=== PATIENT | female | born 1955 | race Caucasian/White ===

== ENCOUNTER → 2019-03-01 12:48 | Outpatient (BNVA) | payer OTHER, MEDICARE, SELFPAY | PROVIDERS: Family Provider Nurse Practitioner; PCP Nurse Practitioner; Visit Provider Nurse Practitioner | DX: G89.29 Other chronic pain (principal); M54.41 Lumbago with sciatica, right side; M54.42 Lumbago with sciatica, left side; M25.511 Pain in right shoulder; M54.2 Cervicalgia; D68.51 Activated protein C resistance; G47.33 Obstructive sleep apnea (adult) (pediatric); Z79.891 Long term (current) use of opiate analgesic | CPT/HCPCS: 99214 ==

== ENCOUNTER → 2019-04-20 14:01 | Outpatient (BNVA) | payer OTHER, SELFPAY | PROVIDERS: Family Provider Nurse Practitioner; PCP Nurse Practitioner; Visit Provider Anesthesiology | DX: M54.2 Cervicalgia (principal); M54.40 Lumbago with sciatica, unspecified side; Z79.891 Long term (current) use of opiate analgesic | CPT/HCPCS: 99214 ==

== ENCOUNTER → 2019-05-11 09:33 | Outpatient (BNVA) | payer OTHER, SELFPAY | PROVIDERS: Family Provider Nurse Practitioner; PCP Nurse Practitioner; Visit Provider Anesthesiology | DX: G89.29 Other chronic pain (principal); M54.42 Lumbago with sciatica, left side; M54.41 Lumbago with sciatica, right side; Z79.891 Long term (current) use of opiate analgesic | CPT/HCPCS: 62323; J1040; J2001; J3490 ==

== ENCOUNTER → 2019-08-23 08:47 | Outpatient (BNVA) | payer OTHER, SELFPAY | PROVIDERS: Family Provider Nurse Practitioner; PCP Nurse Practitioner; Visit Provider Anesthesiology | DX: G89.29 Other chronic pain (principal); M54.42 Lumbago with sciatica, left side; M54.41 Lumbago with sciatica, right side; M54.2 Cervicalgia; Z79.891 Long term (current) use of opiate analgesic | CPT/HCPCS: 99214 ==

== ENCOUNTER → 2019-09-05 15:10 | Outpatient (BNVA) | payer MEDICARE, OTHER, SELFPAY | PROVIDERS: Family Provider Nurse Practitioner; PCP Nurse Practitioner; Visit Provider Internal Medicine Cardiovascular Disease | DX: I10 Essential (primary) hypertension (principal); R06.02 Shortness of breath; I50.33 Acute on chronic diastolic (congestive) heart failure; I25.10 Atherosclerotic heart disease of native coronary artery without angina pectoris; R07.89 Other chest pain | CPT/HCPCS: 80048; 83880 ==

== ENCOUNTER 2019-09-20 09:18 | Outpatient (CLI) | payer MEDICARE, OTHER, SELFPAY ==
[2019-09-20 10:34] VITALS: BMI 42.8
--- NOTE | 2019-09-20 10:35 | NMCV_ITS ---
NM alexandra perf SPECT r/s* [id number] Joanie Stevesn Age: 63 Gender: F : 1955 Exam Date: 09/20/2019 10:43 Ordering Phys: Vicenta Will MD ([email or web address]) Technologist: ALMA Linn Exam Location: [facility] Indications: Chest pain STRESS TEST Please see separate stress test report in [facility] for full findings IMAGE PROTOCOL Rest/Stress 1 Lexiscan Day Radiopharmaceutical Dose (mCi) Administration Site Administered by Rest: Tc-99m 10.5 IV ALMA Linn Sestamibi Stress:Tc-99m 32.9 IV ALMA Linn Sestamijessica Rest: 20-Sep-2019 60 Discovery 630 Stress: 20-Sep-2019 30 Discovery 630 0.4mg Lexiscan. Supine position only as patient was unable to lay prone. SPECT RESULTS Technical Quality: Excellent Raw Data Analysis: Normal Image Corrections: No attenuation or motion correction applied Summed Stress Score: 0 Summed Rest Score: 1 Summed Difference Score: 0 PERFUSION FINDINGS Patchy areas of slightly decreased tracer uptake in anterior wall regions, with no significant reversibility. FUNCTIONAL RESULTS (calculated via Gated SPECT) Stress Image LV EF (%): 80 Stress EDV (mL):127 TID: 1.01 Stress ESV (mL):25 FUNCTIONAL FINDINGS: Segmental wall motion analysis revealing no gross wall motion normalities. IMPRESSIONS 1. Unremarkable myocardial perfusion imaging. 2. Normal LV ejection fraction of 80%. 3. LV wall motion analysis revealing no gross wall motion normalities. 4. Normal LV volume. No significant coronary ischemia, based on the above findings Dr Vicenta Will MD FACC (Electronically Signed) Final Date: 20 September 2019 17:34 S
--- NOTE | 2019-09-20 10:35 | ECG_ITS ---
[facility] Test Date: 2019-09-20 Pat Name: Joanie Stevens Department: Room: Gender: Female Lead Software Developer: Virginie Martinez : 1955 Requested By: Vicenta Will Order Number: [id number] Reading MD: Vicenta Will M.D. Interpretive Statements NAME OF STUDY: LEXISCAN SESTAMIBI STRESS TEST INDICATION: Chest Pain, PROCEDURE: At the baseline, the EKG revealed normal sinus rhythm with a poor R wave progression. Some nonspecific T wave changes. The baseline blood pressure was 137/62 mm Hg with a heart rate of 64 beats/min. Lexiscan was infused over a period of 20 seconds. A total of 0.4 milligrams of Lexiscan was infused. The stress phase was continued for a total of 5 minutes. Heart rate at the end of the stress phase was 68 with a blood pressure 125/52. The EKG at the peak infusion revealed no significant changes. Sestamibi was injected 20 seconds after the Lexiscan infusion. Blood pressure at the end of the recovery phase was 134/59 with a heart rate of 64 per minute. CONCLUSION: 1. No significant EKG changes with the LexiScan infusion 2. No LexiScan induced chest pain or cardiac arrhythmia 3. Normal blood pressure and heart rate response 4. Sestamibi/sestamibi perfusion scan pending; see separate report. Electronically Signed On 09-22-2019 10:46:05 CDT by Vicenta Will M.D. [email or web address]
[2019-09-20 11:58] VITALS: BP 135/61; PULSE 66
[2019-09-20] MEDS: regadenoson 0.4 Mg/5 ml Syringe IVP (11:58)
== END 2019-09-20 09:19 | disposition home or self-care (01) ==
LOC: CDL 09:21
PROVIDERS: PCP Nurse Practitioner; Visit Provider Internal Medicine Cardiovascular Disease
DX: R06.02 Shortness of breath (principal); I25.10 Atherosclerotic heart disease of native coronary artery without angina pectoris; R07.9 Chest pain, unspecified
CPT/HCPCS: 78452; 93017; A9500; J2785

== ENCOUNTER → 2019-10-24 13:49 | Outpatient (BNVA) | payer OTHER, SELFPAY | PROVIDERS: Family Provider Nurse Practitioner; PCP Nurse Practitioner; Visit Provider Nurse Practitioner | DX: G89.29 Other chronic pain (principal); M54.42 Lumbago with sciatica, left side; M54.41 Lumbago with sciatica, right side; M54.2 Cervicalgia; Z79.891 Long term (current) use of opiate analgesic; G62.9 Polyneuropathy, unspecified | CPT/HCPCS: 99213 ==

== ENCOUNTER → 2019-11-21 13:32 | Outpatient (BNVA) | payer OTHER, SELFPAY | PROVIDERS: Family Provider Nurse Practitioner; PCP Nurse Practitioner; Visit Provider Anesthesiology | DX: G89.29 Other chronic pain (principal); M54.42 Lumbago with sciatica, left side; M54.41 Lumbago with sciatica, right side; M54.2 Cervicalgia; Z79.891 Long term (current) use of opiate analgesic | CPT/HCPCS: 99214 ==

== ENCOUNTER → 2020-01-16 13:44 | Outpatient (BNVA) | payer OTHER, SELFPAY | PROVIDERS: Family Provider Nurse Practitioner; PCP Nurse Practitioner; Visit Provider Anesthesiology | DX: G89.29 Other chronic pain (principal); M54.42 Lumbago with sciatica, left side; M54.41 Lumbago with sciatica, right side; M54.2 Cervicalgia; G62.9 Polyneuropathy, unspecified; Z79.891 Long term (current) use of opiate analgesic | CPT/HCPCS: 99214 ==

== ENCOUNTER 2020-01-29 14:54 | Outpatient (CLI) | payer OTHER, MEDICARE, SELFPAY ==
--- NOTE | 2020-01-29 15:05 | MM_ITS ---
WS: [id number] BILATERAL DIGITAL SCREENING MAMMOGRAPHY WITH CAD CLINICAL INFORMATION: SCREENING HISTORY: 6 COMPARISON: None. TECHNIQUE: Bilateral CC and MLO views. FINDINGS: Scattered fibroglandular densities bilaterally. No suspicious focal mass, asymmetry, calcifications, or architectural distortion. No evidence of malignancy. Incidental intramammary lymph nodes. A few be nign calcifications. Involuted fibroadenoma upper outer left breast MM/[place] [id number] IMPRESSION: BI-RADS: 2-Benign FOLLOW UP: 1 Year Follow-up Recommend return to annual screening mammography.
== END 2020-01-29 14:55 | disposition home or self-care (01) ==
LOC: RADSHAW 14:59
PROVIDERS: PCP Nurse Practitioner; Visit Provider Nurse Practitioner
DX: Z12.31 Encounter for screening mammogram for malignant neoplasm of breast (principal)
CPT/HCPCS: 77067

== ENCOUNTER → 2020-03-12 13:44 | Outpatient (BNVA) | payer OTHER, SELFPAY | PROVIDERS: PCP Nurse Practitioner; Visit Provider Anesthesiology | DX: G89.29 Other chronic pain (principal); M54.42 Lumbago with sciatica, left side; M54.41 Lumbago with sciatica, right side; M54.2 Cervicalgia; Z79.891 Long term (current) use of opiate analgesic | CPT/HCPCS: 99214 ==

== ENCOUNTER 2020-03-29 08:34 | Outpatient (CLI) | payer OTHER, SELFPAY ==
--- NOTE | 2020-03-29 | CT_ITS ---
WS: [id number] CT ABDOMEN AND PELVIS WITH CONTRAST HISTORY: HEPATOSPLENOMEGALY TECHNIQUE: Imaging performed of the abdomen and pelvis with IV contrast. Single phase imaging of the abdomen. Coronal and sagittal reformats are submitted. All CT scans at [facility] use at least one of these dose optimization techniques: automated exposure control; mA and/or kV adjustment per patient size (includes targeted exams where dose is matched to clinical indication); or iterativ e reconstruction. IV CONTRAST: Omnipaque 300; 95 mL IV. Oral contrast: Yes. DLP: 1514.31 mGycm COMPARISON: 11/09/2018 Lower thorax: Lung bases are clear. Normal size heart with advanced coronary artery calcifications. N o hiatal hernia. Liver/biliary system: Moderate hepatic steatosis and hepatomegaly. Similar to the prior study with no progression. No bile duct dilatation, mass or portal vein abnormality. Gallbladder: Status post cholecystectomy. Pancreas: Normal. Spleen: Normal size spleen. Adrenal glands: Normal. Right kidney: Normal. Left kidney: Exophytic hypodense density in the posterior LEFT kidney measures 8 mm. No obstruction. Aorta: Extensive atherosclerosis aorta. No aneurysm. Lymphadenopathy: None. Free fluid: None. GI tract: Prior appendectomy. Moderate diffuse constipation. Numerous diverticula noted in the descen ding and sigmoid colon. No evidence for acute diverticulitis. Abdominal wall: Unremarkable abdominal wall. No hernia. Pelvis: Prior hysterectomy. Visualized urinary bladder is negative. No adenopathy or fluid. RIGHT ov zak cyst measures 3.5 x 2.8 cm with slight increase in size since 11/09/2018. Bones: Advanced degenerative changes throughout the lumbar spine. Vacuum disc phenomenon and signific ant disc space narrowing. CT/CT abdomen pelvis w con* [id number] IMPRESSION: 1. Moderate hepatomegaly and hepatic steatosis unchanged. Hepatic steatosis un changed since 11/09/2018 but improved slightly since 12/10/2017. 2. No splenomegaly. 3. Prior cholecystectomy, hysterectomy and appendectomy. 4. Descending and sigmoid diverticulosis without acute diverticulitis.
[2020-03-29] MEDS: iohexol 300 mg/mL 50 mL Btl IV (09:46)
[2020-03-29 09:55] LABS: Blood Urea Nitrogen 15 mg/dL (8-23); Glomerular Filtration Rate 71.8 mL/min (90-130)
[2020-03-29] MEDS: iohexol 300 mg/mL 100 mL Btl IV (10:05)
== END 2020-03-29 08:35 | disposition home or self-care (01) ==
LOC: RADWPI 08:44
PROVIDERS: PCP Nurse Practitioner; Visit Provider Nurse Practitioner
DX: R16.2 Hepatomegaly with splenomegaly, not elsewhere classified (principal); K57.30 Diverticulosis of large intestine without perforation or abscess without bleeding; Z90.49 Acquired absence of other specified parts of digestive tract; Z90.710 Acquired absence of both cervix and uterus; Q42.8 Congenital absence, atresia and stenosis of other parts of large intestine; K76.0 Fatty (change of) liver, not elsewhere classified
CPT/HCPCS: 74177; 82565; 84520; Q9967

== ENCOUNTER → 2020-05-02 13:24 | Outpatient (BNVA) | payer OTHER, SELFPAY | PROVIDERS: PCP Nurse Practitioner; Visit Provider Nurse Practitioner | DX: G89.29 Other chronic pain (principal); M54.42 Lumbago with sciatica, left side; M54.41 Lumbago with sciatica, right side; M54.2 Cervicalgia; G62.9 Polyneuropathy, unspecified; Z79.891 Long term (current) use of opiate analgesic | CPT/HCPCS: 99213 ==

== ENCOUNTER 2020-05-02 15:48 | Emergency (ER) | payer OTHER, MEDICARE, SELFPAY ==
[2020-05-02 15:58] VITALS: BP 130/81; PULSE 92; RESP 28; TEMP 37; O2SAT 95; BMI 40.7
[2020-05-02 17:26] LABS: Basophils # 0.1 10^3/uL (0.0-0.1); Basophils % 0.5 %; Eosinophils # 0.3 10^3/uL (0.0-0.8); Eosinophils % 3.3 %; Hematocrit 45.1 % (37.0-47.0); Hemoglobin 14.2 g/dL (11.5-15.3); Lymphocytes # 4.4 10^3/uL (0.8-4.8); Lymphocytes % 42.7 %; Mean Corpuscular HGB Conc 31.5 g/dL (30.0-36.0); Mean Corpuscular Hemoglobin 28.4 pg (28.0-34.0); Mean Corpuscular Volume 90.2 fL (81-99); Mean Platelet Volume 11.2 fL (7.4-10.4); Monocytes # 1.4 10^3/uL (0.2-0.9); Monocytes % 13.6 %; Neutrophils # 4.01 10^3/uL (1.8-7.7); Neutrophils % 39.3 %; Nucleated Red Blood Cells % 0 %; Platelet Count 329 10^3/cmm (130-400); Red Cell Distribution Width 13.9 % (12.1-15.1); White Blood Count 10.2 10^3/uL (4.0-10.0)
--- NOTE | 2020-05-02 17:26 | ED_ITS ---
Documented by User: Koki Henderson MD 05/02/20 18:23 HPI - Abdominal Pain General: Chief Complaint: Abdominal Pain Stated Complaint: Poss [facility]el Obst[facility] Time Seen by Provider: 05/02/20 17:26 Source: patient Mode of arrival: ambulatory Limitations: no limitations History of Present Illness: HPI narrative: This is a 64-year-old female complaining of abdominal pain, distention, diarrhea for 6 days. No fever. No urinary symptoms. She was constipated last week, started taking some laxative that was prescribed, since then she has had continuous diarrhea, which she describes as foul-smelling, black, watery, with lots of abdominal cramping. She has a history of peptic ulcer disease, COPD, morbid obesity, CAD, and factor V Leiden w/ previous PE. anticoagulated on 5 mg of Eliquis.. No sick contacts. Denies any known food borne illness exposure. No rash. No upper respiratory symptoms. No chest pain. Shortness of breath is at baseline. Abdominal surgeries include appendectomy, cholecystectomy, hysterectomy. She has had a small bowel obstruction in the past. She has been taking Imodium [id number] for symptoms. MD elicited complaint: abdominal pain Associated Symptoms: Reports bloating, change in bowel habits, change in stool character, constipation, GI cramping, diarrhea, heartburn, melena and nausea; Denies chills, coffee ground emesis, dysuria, fever(s), hematochezia, hematemesis and vomiting Review of Systems General: Reports: 10 or more systems reviewed and unremarkable except in HPI and below Const: Reports: body aches, change in appetite, fatigue and malaise; Denies: fever(s) or chills Eyes: Denies: change in vision, blurry vision or blind spots ENMT: Denies: throat pain, hoarseness or nasal congestion Card: Denies: chest pain, palpitations or irregular heart rhythm Resp: Reports: dyspnea and wheezing; Denies: productive cough, pain on inspiration or hemoptysis GI: Reports: abdominal pain, nausea, heartburn, diarrhea, constipation, bloating, GI cramping, change in bowel habits, change in stool character and melena; Denies: vomiting, hematemesis, coffee ground emesis, dysphagia, early satiety, hematochezia or mucus in stool : Denies: difficulty voiding, dysuria or urinary frequency Musc: Reports: back pain Skin/Breast: Denies: rash, pruritus or erythema Neuro: Denies: headache(s), numbness in extremities or weakness in extremities Psych: Denies: anxiety or depression Endo: Denies: polyuria or polydipsia Christopher/Lymph: Denies: easy bruising or easy bleeding PFSH ED PFSH: Medical History (Updated 05/02/20 @ 18:50 by Socorro Dixon MD) Atherosclerotic heart disease Chronic bilateral low back pain with bilateral sciatica Encounter for long-term opiate analgesic use Essential hypertension Hyperlipidemia Neck pain on right side greater than 3 months Obstructive sleep apnea of adult Right upper quadrant pain Fatty liver SOB (shortness of breath) Ventricular arrhythmia Surgical History Hx of appendectomy Hx of arthroscopic knee surgery right side Hx of cataract extraction bilat Hx of cholecystectomy 2018 Hx of hemorrhoidectomy Hx of hysterectomy 1985 Hx of resection of rib !980's After thrown from horse - rt 1st rib Hx of shoulder surgery Sherri-right side Hx of tonsillectomy Family History Brother Diabetes maternal grandmother Mother Hypertension father, brother Mother Cancer Grandmother Stroke Father Heart disease mother, brother Father Lymphoma Social History Smoking and tobacco status: former smoker Quit status (tobacco): has quit using tobacco Year quit tobacco: 2006 - 1PPD x 40 Years Second hand smoke exposure: Yes Smoking risk assessment/counseling performed?: No Alcohol intake: current Alcohol intake frequency: holidays/special occasions only Counseling given: No Counseling given: No Lives independently: Yes Household members: spouse Marital status: service: Yes Current occupational status: retired History of recent travel: No Current gender identity: Female Physical Exam Const: COMMON NORMALS: patient oriented x3 GENERAL APPEARANCE: cooperative; not in distress, not ill appearing and not frail appearing NUTRITIONAL APPEARANCE: obese morbidly obese ORIENTATION/CONSCIOUSNESS: Yes awake, Yes oriented to person and Yes oriented to place HENMT: COMMON NORMALS: normocephalic HEAD & SCALP: normal to inspection and normocephalic FACE & SINUS: normal facial exam and face symmetric Eye: COMMON NORMALS: Equal, round and reactive pupils present, EOMs intact bilaterally, conjunctivae normal and no scleral icterus ALIGNMENT: Yes alignment normal CONJUNCTIVA: Yes conjunctivae normal PUPIL: Yes Equal, round and reactive pupils present Resp: COMMON NORMALS: normal respiratory effort and No use of accessory muscles EFFORT & INSPECTION: Yes able to speak in complete sentences and No tachypneic Cardio: COMMON NORMALS: regular rate, regular rhythm, S1 normal heart sound present and S2 normal heart sound present RATE: regular rate RHYTHM: regular rhythm HEART SOUNDS: S1 normal heart sound present and S2 normal heart sound present GI: COMMON NORMALS: Soft to palpation INSPECTION: No abdominal wall ecchymosis, No abdominal distension and Yes central obesity AUSCULTATION: Yes Hypoactive bowel sounds present PALPATION: Yes Soft to palpation, Yes Tend erness to palpation present (GI) (Diffuse), No Guarding due to palpation present (GI), No Rigid due to palpation, Yes Hepatosplenomegaly present, No Pulsatile mass present, No Ascites present and No Abdominal wall crepitus present Extremity: COMMON NORMALS: normal to inspection, capillary refill normal and no clubbing, cyanosis or edema Neuro: HUMBERTO COMA SCALE: document GCS findings COMMON NORMALS: patient oriented x3, CN's II-XII intact bilaterally and no focal motor deficits SENSORIUM/ORIENTATION: Yes oriented to person and Yes oriented to place Skin: COMMON NORMALS: no rashes or lesions noted, no wounds, turgor normal, no jaundice and no petechiae GENERAL SKIN EXAM: no rashes or lesions noted and turgor normal Course Vital Signs: Vital signs: Vital Signs Temperature 98.6 F 05/02/20 15:58 Pulse Rate 88 05/02/20 19:32 Respiratory Rate 17 05/02/20 19:32 Blood Pressure 92/76 05/02/20 19:32 Pulse Oximetry 95 05/02/20 19:32 MDM - Abdominal Pain MDM Narrative: Medical decision making narrative: 64-year-old female with abdominal pain, cramping, diarrhea for 6 days. Reported melanotic stool, however her hemoglobin is stable at 14.2 which is higher than baseline, so true melena unlikely. Will send any stool sample for C. difficile and occult blood. She was on Keflex 2 weeks ago, so there is possibility of antibiotic associated diarrhea as well. She is diffusely tender, with hypoactive bowel sounds, so CT abdomen pelvis will be done. Urinalysis is likely contaminated, concentrated. Unlikely to be acute infection. Potassium replacement, IV fluid, symptom relief. She has history of VTE, CAD, and factor V Leiden? increased risk for mesenteric ischemia, however she is anticoagulated so this is less likely. Handed off to Dr. Dixon at 6 PM Differential Diagnosis: Differential diagnosis abdominal pain: Likely abdominal pain, acute appendicitis, diverticulitis, gastroenteritis and small bowel obstruction Medical Records: Attestation: I reviewed the patient's medical records. Lab Data: Attestation: I reviewed the patient's lab results. Labs: Lab Results 05/02/20 05/02/20 05/02/20 Range/Units 17:15 17:20 17:20 WBC 10.2 H (4.0-10.0) 10^3/ uL RBC 5.00 (4.1-5.3) 10^6/u L Hgb 14.2 (11.5-15.3) g/dL Hct 45.1 (37.0-47.0) % MCV 90.2 (81-99) fL MCH 28.4 (28.0-34.0) pg MCHC 31.5 (30.0-36.0) g/dL RDW 13.9 (12.1-15.1) % Plt Count 329 (130-400) 10^3/c mm MPV 11.2 H (7.4-10.4) fL Neut % (Auto) 39.3 % Lymph % (Auto) 42.7 % [place] % (Auto) 13.6 % Eos % (Auto) 3.3 % Baso % (Auto) 0.5 % Neut # (Auto) 4.01 (1.8-7.7) 10^3/u L Lymph # (Auto) 4.4 (0.8-4.8) 10^3/u L [place] # (Auto) 1.4 H (0.2-0.9) 10^3/u L Eos # (Auto) 0.3 (0.0-0.8) 10^3/u L Baso # (Auto) 0.1 (0.0-0.1) 10^3/u L Nucleated RBC % (a uto) 0 % Nucleated RBCs # 0.0 /100WBC Sodium 137 (136-145) mmol/L Potassium 3.3 L (3.5-5.1) mmol/L Chloride 99 (98-107) mmol/L Carbon Dioxide 21 L (22-29) mmol/L Anion Gap 20.3 H (5-19) BUN 23 (8-23) mg/dL Creatinine 1.0 H (0.5-0.9) mg/dL GFR Calculation 55.5 L (90-130) mL/min Glucose 104 (65-115) mg/dL Calculated Osmolal ity 288 (285-295) mOsm/k g Lactate (0.5-2.2) mmol/L Calcium 9.5 (8.5-10.5) mg/dL Total Bilirubin 0.6 (0.15-1.2) mg/dL AST 44 H (0-32) U/L ALT 25 (0-33) U/L Alkaline Phosphata se 87 (35-105) IU/L Total Protein 8.3 (6.6-8.7) g/dL Albumin 4.4 (3.5-5.2) g/dL Globulin 3.9 (1.3-4.6) g/dL Lipase 21 (13-60) U/L Urine Color Dark yellow (Yellow) Urine Appearance Cloudy (CLEAR) Urine pH 5 (5-7) Ur Specific Gravit y 1.020 (1.005-1.030) Urine Protein 1+ H (Negative) Urine Glucose (UA) Norm (Normal) Urine Ketones 1+ H (Negative) Urine Blood Neg (Negative) Urine Nitrate Negative (Negative) Urine Bilirubin 1+ H (Negative) Urine Urobilinogen 1 H (Negative) mg/dL Ur Leukocyte Rachel ase Trace H (Negative) Urine RBC 0-4 H (0-2) /hpf Urine WBC 55-80 H (0-5) /hpf Ur Squamous Epith Cells 25-40 H (0-5) /hpf Amorphous Sediment Not Reportable Urine Bacteria 1+ H (NONE) /hpf Hyaline Casts 40-55 H /lpf Urine Mucus Trace /hpf 05/02/20 Range/Units 17:20 WBC (4.0-10.0) 10^3/ uL RBC (4.1-5.3) 10^6/u L Hgb (11.5-15.3) g/dL Hct (37.0-47.0) % MCV (81-99) fL MCH (28.0-34.0) pg MCHC (30.0-36.0) g/dL RDW (12.1-15.1) % Plt Count (130-400) 10^3/c mm MPV (7.4-10.4) fL Neut % (Auto) % Lymph % (Auto) % [place] % (Auto) % Eos % (Auto) % Baso % (Auto) % Neut # (Auto) (1.8-7.7) 10^3/u L Lymph # (Auto) (0.8-4.8) 10^3/u L [place] # (Auto) (0.2-0.9) 10^3/u L Eos # (Auto) (0.0-0.8) 10^3/u L Baso # (Auto) (0.0-0.1) 10^3/u L Nucleated RBC % (a uto) % Nucleated RBCs # /100WBC Sodium (136-145) mmol/L Potassium (3.5-5.1) mmol/L Chloride (98-107) mmol/L Carbon Dioxide (22-29) mmol/L Anion Gap (5-19) BUN (8-23) mg/dL Creatinine (0.5-0.9) mg/dL GFR Calculation (90-130) mL/min Glucose (65-115) mg/dL Calculated Osmolal ity (285-295) mOsm/k g Lactate 2.1 (0.5-2.2) mmol/L Calcium (8.5-10.5) mg/dL Total Bilirubin (0.15-1.2) mg/dL AST (0-32) U/L ALT (0-33) U/L Alkaline Phosphata se (35-105) IU/L Total Protein (6.6-8.7) g/dL Albumin (3.5-5.2) g/dL Globulin (1.3-4.6) g/dL Lipase (13-60) U/L Urine Color (Yellow) Urine Appearance (CLEAR) Urine pH (5-7) Ur Specific Gravit y (1.005-1.030) Urine Protein (Negative) Urine Glucose (UA) (Normal) Urine Ketones (Negative) Urine Blood (Negative) Urine Nitrate (Negative) Urine Bilirubin (Negative) Urine Urobilinogen (Negative) mg/dL Ur Leukocyte Rachel ase (Negative) Urine RBC (0-2) /hpf Urine WBC (0-5) /hpf Ur Squamous Epith Cells (0-5) /hpf Amorphous Sediment Urine Bacteria (NONE) /hpf Hyaline Casts /lpf Urine Mucus /hpf Discharge Plan Discharge Patient Disposition: Home Clinical Impression: Abdominal pain Qualifiers: Abdominal location: generalized Qualified Code(s): R10.84 - Generalized abdominal pain Diarrhea Qualifiers: Diarrhea type: unspecified type Qualified Code(s): R19.7 - Diarrhea, unspecified Condition: Stable Prescriptions: New Flagyl 500 mg tablet 500 mg PO BID 10 Days Qty: 20 RF: 0 Levsin 0.125 mg tablet 0.125 mg PO BID PRN (Reason: abdominal discomfort) Qty: 20 RF: 0 No Action metoprolol tartrate 50 mg tablet 50 mg PO BID@10,22 RF: 0 hydralazine 100 mg tablet 100 mg PO TID RF: 0 nitroglycerin [Nitrostat] 0.4 mg tablet, sublingual 0.4 mg SUBLINGUAL PRN RF: 0 cholecalciferol (vitamin D3) 1,000 unit capsule 4,000 unit PO DAILY@10 RF: 0 albuterol sulfate 90 mcg/actuation HFA aerosol inhaler 1 inh INHALATION Q4H PRN (Reason: Shortness Of Breath) RF: 0 furosemide [Lasix] 40 mg tablet 40 mg PO QAM PRN (Reason: Edema) RF: 0 potassium chloride [Klor-Con M20] 20 mEq tablet,ER particles/crystals See Rx Instructions .ROUTE .COMPLEX RF: 0 pantoprazole 40 mg tablet,delayed release (DR/EC) 40 mg PO QAM RF: 0 Myrbetriq 50 mg tablet extended release 24 hr 50 mg PO DAILY@10 RF: 0 trospium 60 mg capsule,extended release 24hr 60 mg PO QPM RF: 0 Eliquis 5 mg tablet See Rx Instructions .ROUTE .COMPLEX RF: 0 guaifenesin 400 mg tablet 400 mg PO TID PRN (Reason: Congestion) RF: 0 fluticasone propionate 50 mcg/actuation spray,suspension 2 spray INTRANASAL DAILY PRN (Reason: Allergy Symptoms) RF: 0 Zyrtec 10 mg capsule 10 mg PO DAILY PRN (Reason: Allergy Symptoms) RF: 0 lidocaine 5 % ointment 1 applic TOPICAL QID PRN (Reason: pain) 30 Days Qty: 240 RF: 1 pregabalin 200 mg capsule 200 mg PO TID 30 Days Qty: 90 RF: 1 hydrocodone-acetaminophen 10-325 mg tablet 1 tab PO .5 times a day PRN (Reason: pain) 30 Days Qty: 150 RF: 0 hydrocodone-acetaminophen 10-325 mg tablet 1 tab PO Q6H PRN (Reason: pain) 10 Days Qty: 50 RF: 0 diclofenac sodium [Voltaren] 1 % gel 4 gm TOPICAL QID PRN (Reason: athritic pain) Qty: 6 RF: 0 Stiolto Respimat 2.5-2.5 mcg/actuation mist 2 puff inhalation DAILY RF: 0 Asmanex HFA 100 mcg/actuation HFA aerosol inhaler 2 puff inhalation BID 30 Days Qty: 13 RF: 3 senna 8.6 mg Tablet 8.6 mg PO PRN RF: 0 calcium carbonate 650 mg calcium (1,625 mg) Tablet 650 mg PO BID RF: 0 cyanocobalamin (vitamin B-12) 1,000 mcg/mL Solution 1,000 mcg IM Q14D RF: 0 ibuprofen 200 mg Tablet 600 mg PO BEDTIME RF: 0 hydroxyzine pamoate 25 mg Capsule 25 mg PO BEDTIME RF: 0 Fish Oil 1,000 mg Capsule 1 cap PO BID RF: 0 magnesium oxide 400 mg magnesium Tablet 400 mg PO BEDTIME RF: 0 chlorthalidone 25 mg tablet See Rx Instructions .ROUTE .COMPLEX RF: 0 Discharge Orders: Discharge ED (Routine); Ordered 05/02/20 Ordered By: Socorro Dixon Referrals: Jordyn Manuel FNP [Primary Care Provider] - 1-3 days Discharge Diet: Advance as tolerated Discharge Activity: Resume usual activity Patient Instructions: Abdominal Pain (ED), Opioid Safety Coding Level of Care Code ED Director Of Business Continuity for [facility] Fwd Exam Comprehensive Documented by User: Socorro Dixon MD 05/02/20 20:06 HPI - Abdominal Pain General: Chief Complaint: Abdominal Pain Stated Complaint: Poss [facility]el [facility]st[facility] Time Seen by Provider: 05/02/20 17:26 PFSH ED PFSH: Medical History (Updated 05/02/20 @ 18:50 by Socorro Dixon MD) Atherosclerotic heart disease Chronic bilateral low back pain with bilateral sciatica Encounter for long-term opiate analgesic use Essential hypertension Hyperlipidemia Neck pain on right side greater than 3 months Obstructive sleep apnea of adult Right upper quadrant pain Fatty liver SOB (shortness of breath) Ventricular arrhythmia Surgical History Hx of appendectomy Hx of arthroscopic knee surgery right side Hx of cataract extraction bilat Hx of cholecystectomy 2018 Hx of hemorrhoidectomy Hx of hysterectomy 1985 Hx of resection of rib !980's After thrown from horse - rt 1st rib Hx of shoulder surgery Sherri-right side Hx of tonsillectomy Family History Brother Diabetes maternal grandmother Mother Hypertension father, brother Mother Cancer Grandmother Stroke Father Heart disease mother, brother Father Lymphoma Social History Smoking and tobacco status: former smoker Quit status (tobacco): has quit using tobacco Year quit tobacco: 2006 - 1PPD x 40 Years Second hand smoke exposure: Yes Smoking risk assessment/counseling performed?: No Alcohol intake: current Alcohol intake frequency: holidays/special occasions only Counseling given: No Counseling given: No Lives independently: Yes Household members: spouse Marital status: service: Yes Current occupational status: retired History of recent travel: No Current gender identity: Female Course Vital Signs: Vital signs: Vital Signs Temperature 98.6 F 05/02/20 15:58 Pulse Rate 88 05/02/20 19:32 Respiratory Rate 17 05/02/20 19:32 Blood Pressure 92/76 05/02/20 19:32 Pulse Oximetry 95 05/02/20 19:32 MDM - Abdominal Pain MDM Narrative: Medical decision making narrative: Patient presents here with abdominal cramping type pain likely from her diarrhea. She was unable to give a sample here. We will place her on Flagyl at home and Levsin. Her blood work and CT here were all normal. She is stable for discharge and is to follow-up with PCP and return if worsening. Lab Data: Labs: Lab Results 05/02/20 05/02/20 05/02/20 Range/Units 17:15 17:20 17:20 WBC 10.2 H (4.0-10.0) 10^3/ uL RBC 5.00 (4.1-5.3) 10^6/u L Hgb 14.2 (11.5-15.3) g/dL Hct 45.1 (37.0-47.0) % MCV 90.2 (81-99) fL MCH 28.4 (28.0-34.0) pg MCHC 31.5 (30.0-36.0) g/dL RDW 13.9 (12.1-15.1) % Plt Count 329 (130-400) 10^3/c mm MPV 11.2 H (7.4-10.4) fL Neut % (Auto) 39.3 % Lymph % (Auto) 42.7 % [place] % (Auto) 13.6 % Eos % (Auto) 3.3 % Baso % (Auto) 0.5 % Neut # (Auto) 4.01 (1.8-7.7) 10^3/u L Lymph # (Auto) 4.4 (0.8-4.8) 10^3/u L [place] # (Auto) 1.4 H (0.2-0.9) 10^3/u L Eos # (Auto) 0.3 (0.0-0.8) 10^3/u L Baso # (Auto) 0.1 (0.0-0.1) 10^3/u L Nucleated RBC % (a uto) 0 % Nucleated RBCs # 0.0 /100WBC Sodium 137 (136-145) mmol/L Potassium 3.3 L (3.5-5.1) mmol/L Chloride 99 (98-107) mmol/L Carbon Dioxide 21 L (22-29) mmol/L Anion Gap 20.3 H (5-19) BUN 23 (8-23) mg/dL Creatinine 1.0 H (0.5-0.9) mg/dL GFR Calculation 55.5 L (90-130) mL/min Glucose 104 (65-115) mg/dL Calculated Osmolal ity 288 (285-295) mOsm/k g Lactate (0.5-2.2) mmol/L Calcium 9.5 (8.5-10.5) mg/dL Total Bilirubin 0.6 (0.15-1.2) mg/dL AST 44 H (0-32) U/L ALT 25 (0-33) U/L Alkaline Phosphata se 87 (35-105) IU/L Total Protein 8.3 (6.6-8.7) g/dL Albumin 4.4 (3.5-5.2) g/dL Globulin 3.9 (1.3-4.6) g/dL Lipase 21 (13-60) U/L Urine Color Dark yellow (Yellow) Urine Appearance Cloudy (CLEAR) Urine pH 5 (5-7) Ur Specific Gravit y 1.020 (1.005-1.030) Urine Protein 1+ H (Negative) Urine Glucose (UA) Norm (Normal) Urine Ketones 1+ H (Negative) Urine Blood Neg (Negative) Urine Nitrate Negative (Negative) Urine Bilirubin 1+ H (Negative) Urine Urobilinogen 1 H (Negative) mg/dL Ur Leukocyte Rachel ase Trace H (Negative) Urine RBC 0-4 H (0-2) /hpf Urine WBC 55-80 H (0-5) /hpf Ur Squamous Epith Cells 25-40 H (0-5) /hpf Amorphous Sediment Not Reportable Urine Bacteria 1+ H (NONE) /hpf Hyaline Casts 40-55 H /lpf Urine Mucus Trace /hpf 05/02/20 Range/Units 17:20 WBC (4.0-10.0) 10^3/ uL RBC (4.1-5.3) 10^6/u L Hgb (11.5-15.3) g/dL Hct (37.0-47.0) % MCV (81-99) fL MCH (28.0-34.0) pg MCHC (30.0-36.0) g/dL RDW (12.1-15.1) % Plt Count (130-400) 10^3/c mm MPV (7.4-10.4) fL Neut % (Auto) % Lymph % (Auto) % [place] % (Auto) % Eos % (Auto) % Baso % (Auto) % Neut # (Auto) (1.8-7.7) 10^3/u L Lymph # (Auto) (0.8-4.8) 10^3/u L [place] # (Auto) (0.2-0.9) 10^3/u L Eos # (Auto) (0.0-0.8) 10^3/u L Baso # (Auto) (0.0-0.1) 10^3/u L Nucleated RBC % (a uto) % Nucleated RBCs # /100WBC Sodium (136-145) mmol/L Potassium (3.5-5.1) mmol/L Chloride (98-107) mmol/L Carbon Dioxide (22-29) mmol/L Anion Gap (5-19) BUN (8-23) mg/dL Creatinine (0.5-0.9) mg/dL GFR Calculation (90-130) mL/min Glucose (65-115) mg/dL Calculated Osmolal ity (285-295) mOsm/k g Lactate 2.1 (0.5-2.2) mmol/L Calcium (8.5-10.5) mg/dL Total Bilirubin (0.15-1.2) mg/dL AST (0-32) U/L ALT (0-33) U/L Alkaline Phosphata se (35-105) IU/L Total Protein (6.6-8.7) g/dL Albumin (3.5-5.2) g/dL Globulin (1.3-4.6) g/dL Lipase (13-60) U/L Urine Color (Yellow) Urine Appearance (CLEAR) Urine pH (5-7) Ur Specific Gravit y (1.005-1.030) Urine Protein (Negative) Urine Glucose (UA) (Normal) Urine Ketones (Negative) Urine Blood (Negative) Urine Nitrate (Negative) Urine Bilirubin (Negative) Urine Urobilinogen (Negative) mg/dL Ur Leukocyte Rachel ase (Negative) Urine RBC (0-2) /hpf Urine WBC (0-5) /hpf Ur Squamous Epith Cells (0-5) /hpf Amorphous Sediment Urine Bacteria (NONE) /hpf Hyaline Casts /lpf Urine Mucus /hpf Discharge Plan Discharge Patient Disposition: Home Clinical Impression: Abdominal pain Qualifiers: Abdominal location: generalized Qualified Code(s): R10.84 - Generalized abdominal pain Diarrhea Qualifiers: Diarrhea type: unspecified type Qualified Code(s): R19.7 - Diarrhea, unspecified Condition: Stable Prescriptions: New Flagyl 500 mg tablet 500 mg PO BID 10 Days Qty: 20 RF: 0 Levsin 0.125 mg tablet 0.125 mg PO BID PRN (Reason: abdominal discomfort) Qty: 20 RF: 0 No Action metoprolol tartrate 50 mg tablet 50 mg PO BID@10,22 RF: 0 hydralazine 100 mg tablet 100 mg PO TID RF: 0 nitroglycerin [Nitrostat] 0.4 mg tablet, sublingual 0.4 mg SUBLINGUAL PRN RF: 0 cholecalciferol (vitamin D3) 1,000 unit capsule 4,000 unit PO DAILY@10 RF: 0 albuterol sulfate 90 mcg/actuation HFA aerosol inhaler 1 inh INHALATION Q4H PRN (Reason: Shortness Of Breath) RF: 0 furosemide [Lasix] 40 mg tablet 40 mg PO QAM PRN (Reason: Edema) RF: 0 potassium chloride [Klor-Con M20] 20 mEq tablet,ER particles/crystals See Rx Instructions .ROUTE .COMPLEX RF: 0 pantoprazole 40 mg tablet,delayed release (DR/EC) 40 mg PO QAM RF: 0 Myrbetriq 50 mg tablet extended release 24 hr 50 mg PO DAILY@10 RF: 0 trospium 60 mg capsule,extended release 24hr 60 mg PO QPM RF: 0 Eliquis 5 mg tablet See Rx Instructions .ROUTE .COMPLEX RF: 0 guaifenesin 400 mg tablet 400 mg PO TID PRN (Reason: Congestion) RF: 0 fluticasone propionate 50 mcg/actuation spray,suspension 2 spray INTRANASAL DAILY PRN (Reason: Allergy Symptoms) RF: 0 Zyrtec 10 mg capsule 10 mg PO DAILY PRN (Reason: Allergy Symptoms) RF: 0 lidocaine 5 % ointment 1 applic TOPICAL QID PRN (Reason: pain) 30 Days Qty: 240 RF: 1 pregabalin 200 mg capsule 200 mg PO TID 30 Days Qty: 90 RF: 1 hydrocodone-acetaminophen 10-325 mg tablet 1 tab PO .5 times a day PRN (Reason: pain) 30 Days Qty: 150 RF: 0 hydrocodone-acetaminophen 10-325 mg tablet 1 tab PO Q6H PRN (Reason: pain) 10 Days Qty: 50 RF: 0 diclofenac sodium [Voltaren] 1 % gel 4 gm TOPICAL QID PRN (Reason: athritic pain) Qty: 6 RF: 0 Stiolto Respimat 2.5-2.5 mcg/actuation mist 2 puff inhalation DAILY RF: 0 Asmanex HFA 100 mcg/actuation HFA aerosol inhaler 2 puff inhalation BID 30 Days Qty: 13 RF: 3 senna 8.6 mg Tablet 8.6 mg PO PRN RF: 0 calcium carbonate 650 mg calcium (1,625 mg) Tablet 650 mg PO BID RF: 0 cyanocobalamin (vitamin B-12) 1,000 mcg/mL Solution 1,000 mcg IM Q14D RF: 0 ibuprofen 200 mg Tablet 600 mg PO BEDTIME RF: 0 hydroxyzine pamoate 25 mg Capsule 25 mg PO BEDTIME RF: 0 Fish Oil 1,000 mg Capsule 1 cap PO BID RF: 0 magnesium oxide 400 mg magnesium Tablet 400 mg PO BEDTIME RF: 0 chlorthalidone 25 mg tablet See Rx Instructions .ROUTE .COMPLEX RF: 0 Discharge Orders: Discharge ED (Routine); Ordered 05/02/20 Ordered By: Socorro Dixon Referrals: Jordyn Manuel FNP [Primary Care Provider] - 1-3 days Discharge Diet: Advance as tolerated Discharge Activity: Resume usual activity Patient Instructions: Abdominal Pain (ED), Opioid Safety Coding Level of Care Code ED Director Of Business Continuity for [place] Fwd Exam Comprehensive
[2020-05-02 17:48] LABS: Add Urine Microscopic? YES; Bilirubin Urine 1+ (Negative); Blood Urine Neg (Negative); Glucose Urine UA Norm (Normal); Ketones Urine 1+ (Negative); Leukocyte Esterase Urine Trace (Negative); Nitrate Urine Negative (Negative); Protein Urine 1+ (Negative); Urine Appearance Cloudy (CLEAR); Urine Color Dark Yellow (Yellow); Urobilinogen Urine 1 mg/dL (Negative); pH Urine 5 (5-7)
--- NOTE | 2020-05-02 17:48 | PC.PHAR ---
pt states she takes care of her own medications-pt states she has been taking eliquis 5mg 2.5mg po bid [facility]-pt states she has been off of chlorthalidone for 3 months states it was making her feet swell-pt has a rx at [facility] for norco 10-325mg 1 tab q6h prn that was sent in as a emergency rx-pt is waiting for the ct to send norco 10-325 1 tab po five times a day-pt states she hasnt picked up her rx from [facility] yet-pt states she is only taking kcl 20meq po daily-[facility] 40[facility]q po bid-pt states she hasnt taken in 6 days-
--- NOTE | 2020-05-02 17:49 | CTR_ITS ---
PROCEDURE INFORMATION: Exam: CT Abdomen And Pelvis With Contrast Exam date and time: 05/02/2020 6:08 PM Age: 64 years old Clinical indication: Other: Diarrhea; Abdominal pain; Prior surgery; Surgery type: Hyst, appy, bladder; Additional info: Diarrhea, abd pain, melena TECHNIQUE: Imaging protocol: Computed tomography of the abdomen and pelvis with contrast. Radiation optimization: All CT scans at this facility use at least one of these dose optimization techniques: automated exposure control; mA and/or kV adjustment per patient size (includes targeted exams where dose is matched to clinical indication); or iterative reconstruction. Contrast material: VISI 320; Contrast volume: 95 ml; Contrast route: INTRAVENOUS (IV); COMPARISON: No relevant prior studies available. RADIATION DOSE METRICS: Total DLP (mGy-cm): 1928.3 FINDINGS: Liver: Normal. No mass. Gallbladder and bile ducts: Cholecystectomy. No dilation of biliary system. Pancreas: Normal. No ductal dilation. Spleen: Normal. No splenomegaly. Adrenal glands: Normal. No mass. Kidneys and ureters: Normal. No hydronephrosis. Stomach and bowel: Small duodenal diverticulum. Scattered diverticulosis coli. No inflammatory wall thickening of bowel loops. No evidence of bowel obstruction or perforation. No focal mass. Scattered air-fluid levels throughout bowel loops are nonspecific. Appendix: Appendectomy. Intraperitoneal space: Unremarkable. No free air. No significant fluid collection. Vasculature: Diffuse atherosclerosis. No abdominal aortic aneurysm. No active abdominopelvic bleeding. Lymph nodes: Unremarkable. No enlarged lymph nodes. Urinary bladder: Bladder decompressed. Reproductive: Hysterectomy. Bones/joints: The lumbar spine demonstrates marked discogenic and apophyseal joint degenerative changes at multiple levels. Alignment is unremarkable. No acute fractures. Soft tissues: Stimulator device is implanted in the subcutaneous fat of the right lower flank. There is a metallic lead which extends through a right sacral foramen into the presacral space. CT/CT abdomen pelvis w con* [id number] IMPRESSION: No acute pathology in the abdomen or pelvis identified. No clear cause of patient's symptoms apparent. Radiation Dose CTDIVOL = (mGy): DLP = 1928.3 (mGy-cm)
[2020-05-02 17:51] LABS: Alanine Aminotransferase 25 U/L (0-33); Albumin Level 4.4 g/dL (3.5-5.2); Alkaline Phosphatase 87 IU/L (35-105); Anion Gap 20.3 (5-19); Aspartate Amino Transferase 44 U/L (0-32); Blood Urea Nitrogen 23 mg/dL (8-23); Calcium 9.5 mg/dL (8.5-10.5); Carbon Dioxide 21 mmol/L (22-29); Chloride 99 mmol/L (98-107); Globulin 3.9 g/dL (1.3-4.6); Glomerular Filtration Rate 55.5 mL/min (90-130); Glucose 104 mg/dL (65-115); Lactate (Lactic Acid level) 2.1 mmol/L (0.5-2.2); Lipase 21 U/L (13-60); Osmolality Calculated 288 mOsm/kg (285-295); Potassium 3.3 mmol/L (3.5-5.1); Sodium 137 mmol/L (136-145); Total Bilirubin 0.6 mg/dL (0.15-1.2); Total Protein 8.3 g/dL (6.6-8.7)
[2020-05-02 17:52] LABS: Add Urine Culture? No; Bacteria Urine 1+ /hpf; Hyaline Casts Urine 40-55 /lpf; Mucus Urine TRACE /hpf; RBC Urine 0-4 /hpf (0-2); Squamous Epithelial Cell Urine 25-40 /hpf (0-5); WBC Urine 55-80 /hpf (0-5)
[2020-05-02 17:59] VITALS: BP 145/75; PULSE 82; RESP 15; O2SAT 95
[2020-05-02] MEDS: cefTRIAXone 1,000 MG in sodium chloride 0.9% (plus) 50 ML 100 MG IV (18:06)
[2020-05-02] MEDS: iodixanol 320 mg/mL 100mL Btl IV (18:13)
[2020-05-02] MEDS: potassium chloride oral liq 20 mEq/15 mL UDC 40 MEQ PO (18:28)
[2020-05-02] MEDS: diphenoxylate/atropine Tablet 1 TAB PO (19:12)
[2020-05-02 19:32] VITALS: BP 92/76; PULSE 88; RESP 17; O2SAT 95
== END 2020-05-02 19:30 | disposition home or self-care (01) ==
PROVIDERS: Nurse Practitioner Family; Emergency Provider Emergency Medicine; PCP Nurse Practitioner
DX: R10.84 Generalized abdominal pain (principal); R19.7 Diarrhea, unspecified; Z79.01 Long term (current) use of anticoagulants; I25.10 Atherosclerotic heart disease of native coronary artery without angina pectoris; I10 Essential (primary) hypertension; E78.5 Hyperlipidemia, unspecified; Z87.891 Personal history of nicotine dependence
CPT/HCPCS: 74177; 80053; 81001; 83605; 83690; 85025; 96365; 99283; J0696; Q9967

== ENCOUNTER → 2020-05-07 16:36 | Outpatient (BNVA) | payer MEDICARE, SELFPAY | PROVIDERS: PCP Nurse Practitioner; Visit Provider Family Medicine | DX: E87.6 Hypokalemia (principal); R19.7 Diarrhea, unspecified | CPT/HCPCS: 80048 ==

== ENCOUNTER → 2020-06-03 12:34 | Outpatient (BNVA) | payer MEDICARE, SELFPAY | PROVIDERS: PCP Nurse Practitioner; Visit Provider Family Medicine | DX: R19.7 Diarrhea, unspecified (principal) | CPT/HCPCS: 83630; 84311; 87493; 87506 ==

== ENCOUNTER → 2020-06-20 15:48 | Outpatient (BNVA) | payer OTHER, MEDICARE, SELFPAY | PROVIDERS: PCP Nurse Practitioner; Visit Provider Family Medicine | DX: R10.11 Right upper quadrant pain (principal); Z79.899 Other long term (current) drug therapy | CPT/HCPCS: 80076; 86705; 86706; 86709; 86803; 87340 ==

== ENCOUNTER → 2020-06-27 14:28 | Outpatient (BNVA) | payer OTHER, SELFPAY | PROVIDERS: PCP Nurse Practitioner; Visit Provider Nurse Practitioner | DX: G89.29 Other chronic pain (principal); M54.2 Cervicalgia; M54.42 Lumbago with sciatica, left side; M54.41 Lumbago with sciatica, right side; G62.9 Polyneuropathy, unspecified; Z79.891 Long term (current) use of opiate analgesic | CPT/HCPCS: 99214 ==

== ENCOUNTER → 2020-08-20 13:28 | Outpatient (BNVA) | payer OTHER, SELFPAY | PROVIDERS: PCP Nurse Practitioner; Visit Provider Nurse Practitioner | DX: G89.29 Other chronic pain (principal); M54.42 Lumbago with sciatica, left side; M54.41 Lumbago with sciatica, right side; M54.2 Cervicalgia; G62.9 Polyneuropathy, unspecified; E66.01 Morbid (severe) obesity due to excess calories; Z79.891 Long term (current) use of opiate analgesic; Z87.891 Personal history of nicotine dependence | CPT/HCPCS: 99213 ==

== ENCOUNTER → 2020-10-01 15:04 | Outpatient (BNVA) | payer MEDICARE, SELFPAY | PROVIDERS: PCP Family Medicine; Visit Provider Family Medicine | DX: E66.01 Morbid (severe) obesity due to excess calories (principal); E78.2 Mixed hyperlipidemia; I10 Essential (primary) hypertension; J44.9 Chronic obstructive pulmonary disease, unspecified | CPT/HCPCS: 80053; 80061; 83721; 84443 ==

== ENCOUNTER → 2020-10-10 13:31 | Outpatient (BNVA) | payer OTHER, SELFPAY | PROVIDERS: PCP Nurse Practitioner; Visit Provider Nurse Practitioner | DX: G89.29 Other chronic pain (principal); M54.42 Lumbago with sciatica, left side; M54.41 Lumbago with sciatica, right side; M54.2 Cervicalgia; G62.9 Polyneuropathy, unspecified; Z79.891 Long term (current) use of opiate analgesic | CPT/HCPCS: 99213; 99214 ==

== ENCOUNTER → 2020-12-05 14:05 | Outpatient (BNVA) | payer OTHER, SELFPAY | PROVIDERS: PCP Nurse Practitioner; Visit Provider Anesthesiology | DX: G89.29 Other chronic pain (principal); M54.42 Lumbago with sciatica, left side; M54.41 Lumbago with sciatica, right side; M54.2 Cervicalgia; G62.9 Polyneuropathy, unspecified; I25.10 Atherosclerotic heart disease of native coronary artery without angina pectoris; E78.2 Mixed hyperlipidemia; I10 Essential (primary) hypertension; Z79.1 Long term (current) use of non-steroidal anti-inflammatories (NSAID); Z79.891 Long term (current) use of opiate analgesic; Z87.891 Personal history of nicotine dependence | CPT/HCPCS: 99214 ==

== ENCOUNTER → 2020-12-06 12:06 | Outpatient (BNVA) | payer OTHER, SELFPAY | PROVIDERS: PCP Nurse Practitioner; Visit Provider Family Medicine | DX: J01.00 Acute maxillary sinusitis, unspecified (principal); Z79.1 Long term (current) use of non-steroidal anti-inflammatories (NSAID) | CPT/HCPCS: 80048 ==

== ENCOUNTER → 2021-01-02 13:29 | Outpatient (BNVA) | payer OTHER, SELFPAY | PROVIDERS: PCP Nurse Practitioner; Visit Provider Anesthesiology | DX: G89.29 Other chronic pain (principal); M54.42 Lumbago with sciatica, left side; M54.41 Lumbago with sciatica, right side; M54.2 Cervicalgia; Z79.891 Long term (current) use of opiate analgesic | CPT/HCPCS: 99214 ==

== ENCOUNTER → 2021-05-12 14:24 | Outpatient (BNVA) | payer OTHER, SELFPAY | PROVIDERS: PCP Family Medicine; Visit Provider Internal Medicine Critical Care Medicine | DX: J44.9 Chronic obstructive pulmonary disease, unspecified (principal); I10 Essential (primary) hypertension; E66.01 Morbid (severe) obesity due to excess calories; E78.2 Mixed hyperlipidemia; G47.33 Obstructive sleep apnea (adult) (pediatric); I25.10 Atherosclerotic heart disease of native coronary artery without angina pectoris; I27.82 Chronic pulmonary embolism; I49.9 Cardiac arrhythmia, unspecified; I50.33 Acute on chronic diastolic (congestive) heart failure; R06.02 Shortness of breath; R07.89 Other chest pain; R07.9 Chest pain, unspecified; R91.1 Solitary pulmonary nodule | CPT/HCPCS: 99214 ==

== ENCOUNTER 2021-05-23 17:50 | Emergency (ER) | payer OTHER, MEDICARE, SELFPAY ==
[2021-05-23 18:10] VITALS: BP 136/73; PULSE 70; RESP 20; TEMP 36.6; O2SAT 97; BMI 38.0
--- NOTE | 2021-05-23 18:10 | XRR_ITS ---
PROCEDURE INFORMATION: Exam: XR Abdomen Exam date and time: 05/23/2021 6:16 PM Age: 65 years old Clinical indication: Constipation; Additional info: Constipation, no bm or urination for 3 days TECHNIQUE: Imaging protocol: XR of the abdomen. Views: Frontal supine view of the abdomen. 1 View. COMPARISON: CT abdomen pelvis w con* [id number] 05/02/2020 6:27 PM FINDINGS: Tubes, catheters and devices: The previously seen stimulator device and its lead appear stable in position. Gastrointestinal tract: A large amount of stool is present in the mid to distal colon. The rectum is moderately distended with formed stool raising the possibility of fecal impaction. [id number] gaseous distention of the proximal to mid colon is also appreciated. No small bowel dilatation is detected. Organs: Cholecystectomy clips are again noted. Bones/joints: Moderate to severe degenerative changes are present in the lumbar spine. XR/XR KUB [id number] IMPRESSION: Constipation and possible rectal fecal impaction.
--- NOTE | 2021-05-23 19:09 | W.ED.GENADLT ---
Documented by User: Angelo Kinsey MD 05/26/21 01:50 HPI - General Adult General: Chief complaint: General Medical Stated complaint: no BM or urination for 3 days Time Seen by Provider: 05/23/21 19:09 History of Present Illness: Ms. Stevens is a 65-year-old lady with complex past medical history who presents to the emergency department due to abdominal pain. She reports onset of symptoms approximately 3 days ago but subacute. She reports inability to void since that time though she is still occasionally having leakage. She has had increased intensity abdominal discomfort which is fullness and tightness as well as cramping which at times is moderate to severe in intensity. Additionally today she is no longer able to urinate. She does have a history of urinary difficulty denies abdomen an implanted bladder stimulator. She has had multiple abdominal surgeries. She reports compliance with her medication regimen including no missed doses of Eliquis. Mild generalized unwell feeling however no other specific changes in health, exacerbating, or alleviating factors identified. Onset (ago): day(s) Location: abdomen Severity: moderate Quality: other Pain Consistency: constant and intermittent Relieving factors: none Exacerbating factors: none Associated symptoms: Reports nausea and other Treatments prior to arrival: other ([id number] laxatives) Review of Systems General: Reports: 10 or more systems reviewed and unremarkable except in HPI and below GI: Reports: nausea PFSH ED PFSH: Medical History Atherosclerotic heart disease Chronic bilateral low back pain with bilateral sciatica Encounter for long-term opiate analgesic use Essential hypertension History of neuropathy Hx MRSA infection Hx of Clostridium difficile infection Hyperlipidemia Neck pain on right side greater than 3 months Obstructive sleep apnea of adult Right upper quadrant pain Fatty liver SOB (shortness of breath) Ventricular arrhythmia Surgical History History of bladder surgery Hx of appendectomy Hx of arthroscopic knee surgery right side Hx of cataract extraction bilat Hx of cholecystectomy 2018 Hx of hemorrhoidectomy Hx of hysterectomy 1986 Hx of resection of rib !980's After thrown from horse - rt 1st rib Hx of shoulder surgery Sherri-right side Hx of tonsillectomy Family History Brother Diabetes maternal grandmother Anesthesia complication Mother Hypertension father, brother Bleeding disorder Clotting disorder CAD (coronary artery disease) Mother Cancer Grandmother Stroke Diabetes Father Heart disease mother, brother Lung disease Father Lymphoma CAD (coronary artery disease) Cancer Denies family history of Dementia Chronic kidney disease (CKD) Suicide Social History Smoking and tobacco status: former smoker Quit status (tobacco): has quit using tobacco Year quit tobacco: 2005 Former quit date comment: Hx of 1PPD x 40 Years, started at age 13 Second hand smoke exposure: No Smoking risk assessment/counseling performed?: No Alcohol intake: current Alcohol intake frequency: holidays/special occasions only Desire information about alcohol rehabilitation?: No Counseling given: No Desire information about substance/drug rehabilitation?: No Counseling given: No Lives independently: Yes Household members: spouse Marital status: service: Yes Current occupational status: retired Pets and animals: Yes History of recent travel: No Current gender identity: Female Physical Exam Const: COMMON NORMALS: alert GENERAL APPEARANCE: cooperative, well developed and in distress (Uncomfortable due to abdominal pain.) HENMT: COMMON NORMALS: normocephalic and atraumatic HEAD & SCALP: normocephalic and atraumatic Eye: COMMON NORMALS: conjunctivae normal CONJUNCTIVA: Yes conjunctivae normal SCLERA: sclerae normal Neck/C-Spine: COMMON NORMALS: supple GENERAL: Yes trachea midline Resp: COMMON NORMALS: clear to auscultation bilaterally EFFORT & INSPECTION: Yes able to speak in complete sentences AUSCULTATION: clear to auscultation bilaterally Cardio: COMMON NORMALS: regular rate and regular rhythm RATE: regular rate RHYTHM: regular rhythm GI: COMMON NORMALS: Soft to palpation PALPATION: Yes Soft to palpation, Yes Tenderness to palpation present (GI), No Guarding due to palpation present (GI) and No Rigid due to palpation Extremity: GENERAL: Yes normal exam except as noted and No edema Neuro: COMMON NORMALS: moves all extremities SENSORIUM/ORIENTATION: Yes alert and No Orientation impaired Psych: COMMON NORMALS: mental status grossly normal and Normal thought process present THOUGHT PROCESS: Normal thought process present Course ED course: - Patient was seen and evaluated by me at bedside - Patient placed on cardiac monitors, IV access obtained - Initial evaluation notable for exam as above, uncomfortable appearing. - Labs and xrays personally interpreted by me - Analgesia given. - 1200 cc of urine on straight cath - Labs notable for leukocytosis, normal hemoglobin. Metabolic panel with mild evidence of dehydration. - Imaging notable for constipation with fecal impaction. - Manual disimpaction performed with good amount of stool removed. - Enema ordered. Patient care handed off to overnight ED physician pending bowel movement and urination. Likely discharge. - Most likely cause of patient's symptoms is constipation with urinary retention related to related displacement of bladder. Note: Click bubbles or prepopulated burgess in note writing are used for assistance with data collection and billing and are inherently more limited than narrative and other text portions of this note. Please use narrative for additional clinical history and defer to narrative/free test for any case of contradictory information. If information appears in only free text or click bubble it should be considered present or absent as reported. Please contact note pattern chart writer for clarifications of clinical information or contradictory information. MDM is a brief summary, contradictory or erroneous seeming information should be clarified and full note should be reviewed. Vital Signs: Vital signs: Vital Signs Temperature 97.9 F 05/24/21 01:54 Pulse Rate 69 05/24/21 01:54 Respiratory Rate 16 05/24/21 01:54 Blood Pressure 132/70 05/24/21 01:54 Pulse Oximetry 95 05/24/21 01:54 MDM - General Adult Medical Decision Making 65-year-old lady presenting with 3 days of abdominal pain associated with constipation and inability to urinate. 1200 cc in bladder. Patient manually disimpacted and handed off to overnight ED physician Dr. Dixon pending enema/bowel movement and urination. Patient presents with constipation she had a manual disimpaction along with lactulose given here she has had a bowel movement here she stable for discharge will discharge with enemas and GoLYTELY she is to follow-up PCP and return if worsening. Medical Records I reviewed the patient's medical records. Lab Data I reviewed the patient's lab results. : 05/23/21 19:50 05/23/21 19:50 Radiology Impressions KUB X-Ray 05/23/21 18:10 IMPRESSION: Constipation and possible rectal fecal impaction. Abdomen/Pelvis CT 05/23/21 19:26 IMPRESSION: 1. Constipation versus colonic ileus. 2. Previous appendectomy, cholecystectomy and hysterectomy. 3. 4 cm simple appearing right ovarian cyst and 1.9 cm left ovarian cyst. Ultrasound follow-up in 6-12 months is recommended. (Reference: Reagan) REFERENCES: Reagan et al. Management of Incidental Adnexal Findings on CT and MRI: A White Paper of the ACR Incidental Findings Committee, J Am Rodrigo Radiol. 2019;17(2):248-254. Laboratory Results WBC 17.0 10^3/uL (4.0-10.0) H 05/23/21 19:50 RBC 4.86 10^6/uL (4.1-5.3) 05/23/21 19:50 Hgb 13.8 g/dL (11.5-15.3) 05/23/21 19:50 Hct 42.2 % (37.0-47.0) 05/23/21 19:50 MCV 86.8 fl (81-99) 05/23/21 19:50 MCH 28.4 pg (28.0-34.0) 05/23/21 19:50 MCHC 32.7 g/dL (30.0-36.0) 05/23/21 19:50 RDW 13.5 % (12.1-15.1) 05/23/21 19:50 Plt Count 299 10^3/cmm (130-400) 05/23/21 19:50 MPV 11.5 fL (7.4-10.4) H 05/23/21 19:50 Neut % (Auto) 70.4 % 05/23/21 19:50 Lymph % (Auto) 19.3 % 05/23/21 19:50 Payne % (Auto) 9.4 % 05/23/21 19:50 Eos % (Auto) 0.1 % 05/23/21 19:50 Baso % (Auto) 0.4 % 05/23/21 19:50 Neut # (Auto) 11.98 10^3/uL (1.8-7.7) H 05/23/21 19:50 Lymph # (Auto) 3.3 10^3/uL (0.8-4.8) 05/23/21 19:50 Payne # (Auto) 1.6 10^3/uL (0.2-0.9) H 05/23/21 19:50 Eos # (Auto) 0.0 10^3/uL (0.0-0.8) 05/23/21 19:50 Baso # (Auto) 0.1 10^3/uL (0.0-0.1) 05/23/21 19:50 Nucleated RBC % (auto) 0 % 05/23/21 19:50 Nucleated RBCs # 0.0 /100WBC 05/23/21 19:50 Sodium 134 mmol/L (136-145) L 05/23/21 19:50 Potassium 3.4 mmol/L (3.5-5.1) L 05/23/21 19:50 Chloride 95 mmol/L (98-107) L 05/23/21 19:50 Carbon Dioxide 27 mmol/L (22-29) 05/23/21 19:50 Anion Gap 15.4 (5-19) 05/23/21 19:50 BUN 13 mg/dL (8-23) 05/23/21 19:50 Creatinine 0.6 mg/dL (0.5-0.9) 05/23/21 19:50 GFR Calculation 99.7 mL/min (90-130) 05/23/21 19:50 Glucose 147 mg/dL (65-115) H 05/23/21 19:50 Calculated Osmolality 281 mOsm/kg (285-295) L 05/23/21 19:50 Lactate 2.0 mmol/L (0.5-2.2) 05/23/21 19:50 Calcium 10.1 mg/dL (8.5-10.5) 05/23/21 19:50 Total Bilirubin 0.5 mg/dL (0.15-1.2) 05/23/21 19:50 AST 22 U/L (0-32) 05/23/21 19:50 ALT 16 U/L (0-33) 05/23/21 19:50 Alkaline Phosphatase 102 IU/L (35-105) 05/23/21 19:50 Total Protein 7.5 g/dL (6.6-8.7) 05/23/21 19:50 Albumin 4.6 g/dL (3.5-5.2) 05/23/21 19:50 Globulin 2.9 g/dL (1.3-4.6) 05/23/21 19:50 Lipase 16 U/L (13-60) 05/23/21 19:50 Urine Color Yellow (Yellow) 05/23/21 20:35 Urine Appearance Clear (CLEAR) 05/23/21 20:35 Urine pH 7 (5-7) 05/23/21 20:35 Ur Specific [place] 1.005 (1.005-1.030) 05/23/21 20:35 Urine Protein Neg (Negative) 05/23/21 20:35 Urine Glucose (UA) Norm (Normal) 05/23/21 20:35 Urine Ketones Negative (Negative) 05/23/21 20:35 Urine Blood Neg (Negative) 05/23/21 20:35 Urine Nitrate Negative (Negative) 05/23/21 20:35 Urine Bilirubin Neg (Negative) 05/23/21 20:35 Urine Urobilinogen Norm mg/dL (Negative) 05/23/21 20:35 Ur Leukocyte Esterase Negative (Negative) 05/23/21 20:35 Discharge Plan Discharge Patient Disposition: Home Clinical Impression: Constipation, Abdominal pain, Acute urinary retention Condition: Stable Prescriptions: [place] [id number] -5.86 gram recon soln 25 ml PO Q1M Qty: 4000 0RF Rx Instructions: until fecal effluent is clear bisacodyl 10 mg/30 mL enema 10 mg [place] DAILY PRN (Reason: constipation) Qty: 37 0RF No Action hydralazine 100 mg tablet 100 mg PO TID 0RF nitroglycerin [Nitrostat] 0.4 mg tablet, sublingual 0.4 mg SUBLINGUAL PRN 0RF cholecalciferol (vitamin D3) 1,000 unit capsule 4,000 unit PO DAILY@10 0RF albuterol sulfate 90 mcg/actuation HFA aerosol inhaler 1 inh INHALATION Q4H PRN (Reason: Shortness Of Breath) 0RF pantoprazole 40 mg tablet,delayed release (DR/EC) 40 mg PO QAM 0RF Myrbetriq 50 mg tablet extended release 24 hr 50 mg PO DAILY@10 0RF trospium 60 mg capsule,extended release 24hr 60 mg PO QPM 0RF Zyrtec 10 mg capsule 10 mg PO DAILY PRN (Reason: Allergy Symptoms) 0RF fluticasone propionate 50 mcg/actuation spray,suspension 2 spray INTRANASAL DAILY 0RF Eliquis 5 mg tablet 5 mg PO BID 0RF potassium chloride [Klor-Con M20] 20 mEq tablet,ER particles/crystals 40 meq PO BID 0RF lidocaine 5 % ointment 1 applic TOPICAL QID PRN (Reason: pain) 30 Days Qty: 240 1RF isosorbide mononitrate 30 mg tablet extended release 24 hr 30 mg PO DAILY 30 Days Qty: 30 5RF lidocaine-epinephrine 1 %-1:100,000 solution 2 ml SUBCUT ONCE Qty: 20 0RF metoprolol succinate 100 mg tablet extended release 24 hr 100 mg PO DAILY Qty: 90 3RF Stiolto Respimat 2.5-2.5 mcg/actuation mist 2 puff inhalation DAILY Qty: 4 6RF (DME) oxygen-air delivery systems Device See Rx Instructions .Route 0RF Rx Instructions: As directed (DME) oxygen-air delivery systems Device See Rx Instructions .Route 0RF Rx Instructions: As directed Relistor 150 mg tablet 450 mg PO QAM Qty: 90 2RF Senokot Extra Strength 17.2 mg tablet 34.4 mg PO BID Qty: 120 3RF hydrocodone-acetaminophen 10-325 mg tablet 1 tab PO .5xd PRN0RF pregabalin [Lyrica] 200 mg capsule 200 mg PO TID 30 Days Qty: 90 1RF Rx Instructions: / phentermine [Adipex-P] 37.5 mg tablet 37.5 mg PO DAILY Qty: 30 0RF Rx Instructions: must administer 30 minutes before or 1-2 hours after breakfast senna 8.6 mg Tablet 8.6 mg PO PRN 0RF calcium carbonate 650 mg calcium (1,625 mg) Tablet 650 mg PO BID 0RF cyanocobalamin (vitamin B-12) 1,000 mcg/mL Solution 1,000 mcg IM Q14D 0RF Rx Instructions: due on wednesday05/07/20 ibuprofen 200 mg Tablet 600 mg PO BEDTIME 0RF hydroxyzine pamoate 25 mg Capsule 25 mg PO BEDTIME 0RF magnesium oxide 400 mg magnesium Tablet 400 mg PO BEDTIME 0RF chlorthalidone 25 mg tablet See Rx Instructions .ROUTE .COMPLEX 0RF Rx Instructions: SEE PHARMACY COMMENTS Discharge Orders: Discharge ED (Routine); Ordered 05/24/21 Ordered By: Socorro Dixon Referrals: Abigail Grider MD [Primary Care Provider] - Discharge Diet: Advance as tolerated and Clear Liquid Discharge Activity: Increase activity as tolerated Patient Instructions: Constipation (ED), Acute Urinary Retention in Women (ED), Abdominal Pain (ED), Opioid Safety Activity Restrictions/Additional Instructions: Thank you for visiting the emergency department. You were seen and evaluated for abdominal pain associated with constipation and urinary retention. On CT you do have distended colon with evidence of stool burden as well as liquid stool behind this. We are pleased that you improved with treatment. I recommend discontinuing a bowel regimen for the next few days titrating so you have applesauce consistency stools multiple times per day. Laboratory studies did demonstrate elevated white blood cell count which is likely reactive however I recommend repeat labs in 1 week to ensure resolution. Additionally your potassium was mildly low and you did have evidence of mild dehydration. Please follow-up with your primary care provider. Please establish with a primary care provider if you do not have 1. Please follow-up with your urologist. Please return to the emergency department for worsening symptoms, inability to urinate or have bowel movements, lightheadedness, dizziness, chest pain, shortness of breath, or anything else that you are concerned about and feel needs emergency department evaluation. Incidental findings from radiology include: 4 cm simple appearing right ovarian cyst and 1.9 cm left ovarian cyst. Ultrasound follow-up in 6-12 months is recommended. Coding Level of Care Code ED Circuit Manager for Chg Fwd Exam Comprehensive Documented by User: Socorro Dixon MD 05/24/21 01:59 HPI - General Adult General: Chief complaint: General Medical Stated complaint: no BM or urination for 3 days Time Seen by Provider: 05/23/21 19:09 [facility] ED [facility]: Medical History Atherosclerotic heart disease Chronic bilateral low back pain with bilateral sciatica Encounter for long-term opiate analgesic use Essential hypertension History of neuropathy Hx MRSA infection Hx of Clostridium difficile infection Hyperlipidemia Neck pain on right side greater than 3 months Obstructive sleep apnea of adult Right upper quadrant pain Fatty liver SOB (shortness of breath) Ventricular arrhythmia Surgical History History of bladder surgery Hx of appendectomy Hx of arthroscopic knee surgery right side Hx of cataract extraction bilat Hx of cholecystectomy 2018 Hx of hemorrhoidectomy Hx of hysterectomy 1986 Hx of resection of rib !980's After thrown from horse - rt 1st rib Hx of shoulder surgery Sherri-right side Hx of tonsillectomy Family History Brother Diabetes maternal grandmother Anesthesia complication Mother Hypertension father, brother Bleeding disorder Clotting disorder CAD (coronary artery disease) Mother Cancer Grandmother Stroke Diabetes Father Heart disease mother, brother Lung disease Father Lymphoma CAD (coronary artery disease) Cancer Denies family history of Dementia Chronic kidney disease (CKD) Suicide Social History Smoking and tobacco status: former smoker Quit status (tobacco): has quit using tobacco Year quit tobacco: 2005 Former quit date comment: Hx of 1PPD x 40 Years, started at age 13 Second hand smoke exposure: No Smoking risk assessment/counseling performed?: No Alcohol intake: current Alcohol intake frequency: holidays/special occasions only Desire information about alcohol rehabilitation?: No Counseling given: No Desire information about substance/drug rehabilitation?: No Counseling given: No Lives independently: Yes Household members: spouse Marital status: service: Yes Current occupational status: retired Pets and animals: Yes History of recent travel: No Current gender identity: Female Course Vital Signs: Vital signs: Vital Signs Temperature 97.9 F 05/24/21 01:54 Pulse Rate 69 05/24/21 01:54 Respiratory Rate 16 05/24/21 01:54 Blood Pressure 132/70 05/24/21 01:54 Pulse Oximetry 95 05/24/21 01:54 MDM - General Adult Medical Decision Making Patient presents with constipation she had a manual disimpaction along with lactulose given here she has had a bowel movement here she stable for discharge will discharge with enemas and GoLYTELY she is to follow-up PCP and return if worsening. Lab Data : 05/23/21 19:50 05/23/21 19:50 Radiology Impressions KUB X-Ray 05/23/21 18:10 IMPRESSION: Constipation and possible rectal fecal impaction. Abdomen/Pelvis CT 05/23/21 19:26 IMPRESSION: 1. Constipation versus colonic ileus. 2. Previous appendectomy, cholecystectomy and hysterectomy. 3. 4 cm simple appearing right ovarian cyst and 1.9 cm left ovarian cyst. Ultrasound follow-up in 6-12 months is recommended. (Reference: Reagan) REFERENCES: Reagan et al. Management of Incidental Adnexal Findings on CT and MRI: A White Paper of the ACR Incidental Findings Committee, J Am Rodrigo Radiol. 2019;17(2):248-254. Laboratory Results WBC 17.0 10^3/uL (4.0-10.0) H 05/23/21 19:50 RBC 4.86 10^6/uL (4.1-5.3) 05/23/21 19:50 Hgb 13.8 g/dL (11.5-15.3) 05/23/21 19:50 Hct 42.2 % (37.0-47.0) 05/23/21 19:50 MCV 86.8 fl (81-99) 05/23/21 19:50 MCH 28.4 pg (28.0-34.0) 05/23/21 19:50 MCHC 32.7 g/dL (30.0-36.0) 05/23/21 19:50 RDW 13.5 % (12.1-15.1) 05/23/21 19:50 Plt Count 299 10^3/cmm (130-400) 05/23/21 19:50 MPV 11.5 fL (7.4-10.4) H 05/23/21 19:50 Neut % (Auto) 70.4 % 05/23/21 19:50 Lymph % (Auto) 19.3 % 05/23/21 19:50 Payne % (Auto) 9.4 % 05/23/21 19:50 Eos % (Auto) 0.1 % 05/23/21 19:50 Baso % (Auto) 0.4 % 05/23/21 19:50 Neut # (Auto) 11.98 10^3/uL (1.8-7.7) H 05/23/21 19:50 Lymph # (Auto) 3.3 10^3/uL (0.8-4.8) 05/23/21 19:50 Payne # (Auto) 1.6 10^3/uL (0.2-0.9) H 05/23/21 19:50 Eos # (Auto) 0.0 10^3/uL (0.0-0.8) 05/23/21 19:50 Baso # (Auto) 0.1 10^3/uL (0.0-0.1) 05/23/21 19:50 Nucleated RBC % (auto) 0 % 05/23/21 19:50 Nucleated RBCs # 0.0 /100WBC 05/23/21 19:50 Sodium 134 mmol/L (136-145) L 05/23/21 19:50 Potassium 3.4 mmol/L (3.5-5.1) L 05/23/21 19:50 Chloride 95 mmol/L (98-107) L 05/23/21 19:50 Carbon Dioxide 27 mmol/L (22-29) 05/23/21 19:50 Anion Gap 15.4 (5-19) 05/23/21 19:50 BUN 13 mg/dL (8-23) 05/23/21 19:50 Creatinine 0.6 mg/dL (0.5-0.9) 05/23/21 19:50 GFR Calculation 99.7 mL/min (90-130) 05/23/21 19:50 Glucose 147 mg/dL (65-115) H 05/23/21 19:50 Calculated Osmolality 281 mOsm/kg (285-295) L 05/23/21 19:50 Lactate 2.0 mmol/L (0.5-2.2) 05/23/21 19:50 Calcium 10.1 mg/dL (8.5-10.5) 05/23/21 19:50 Total Bilirubin 0.5 mg/dL (0.15-1.2) 05/23/21 19:50 AST 22 U/L (0-32) 05/23/21 19:50 ALT 16 U/L (0-33) 05/23/21 19:50 Alkaline Phosphatase 102 IU/L (35-105) 05/23/21 19:50 Total Protein 7.5 g/dL (6.6-8.7) 05/23/21 19:50 Albumin 4.6 g/dL (3.5-5.2) 05/23/21 19:50 Globulin 2.9 g/dL (1.3-4.6) 05/23/21 19:50 Lipase 16 U/L (13-60) 05/23/21 19:50 Urine Color Yellow (Yellow) 05/23/21 20:35 Urine Appearance Clear (CLEAR) 05/23/21 20:35 Urine pH 7 (5-7) 05/23/21 20:35 Ur Specific [place] 1.005 (1.005-1.030) 05/23/21 20:35 Urine Protein Neg (Negative) 05/23/21 20:35 Urine Glucose (UA) Norm (Normal) 05/23/21 20:35 Urine Ketones Negative (Negative) 05/23/21 20:35 Urine Blood Neg (Negative) 05/23/21 20:35 Urine Nitrate Negative (Negative) 05/23/21 20:35 Urine Bilirubin Neg (Negative) 05/23/21 20:35 Urine Urobilinogen Norm mg/dL (Negative) 05/23/21 20:35 Ur Leukocyte Esterase Negative (Negative) 05/23/21 20:35 Discharge Plan Discharge Patient Disposition: Home Clinical Impression: Constipation, Abdominal pain, Acute urinary retention Condition: Stable Prescriptions: New [place] 236-22.74-6.74 -5.86 gram recon soln 25 ml PO Q1M Qty: 4000 0RF Rx Instructions: until fecal effluent is clear bisacodyl 10 mg/30 mL enema 10 mg [place] DAILY PRN (Reason: constipation) Qty: 37 0RF No Action hydralazine 100 mg tablet 100 mg PO TID 0RF nitroglycerin [Nitrostat] 0.4 mg tablet, sublingual 0.4 mg SUBLINGUAL PRN 0RF cholecalciferol (vitamin D3) 1,000 unit capsule 4,000 unit PO DAILY@10 0RF albuterol sulfate 90 mcg/actuation HFA aerosol inhaler 1 inh INHALATION Q4H PRN (Reason: Shortness Of Breath) 0RF pantoprazole 40 mg tablet,delayed release (DR/EC) 40 mg PO QAM 0RF Myrbetriq 50 mg tablet extended release 24 hr 50 mg PO DAILY@10 0RF trospium 60 mg capsule,extended release 24hr 60 mg PO QPM 0RF Zyrtec 10 mg capsule 10 mg PO DAILY PRN (Reason: Allergy Symptoms) 0RF fluticasone propionate 50 mcg/actuation spray,suspension 2 spray INTRANASAL DAILY 0RF Eliquis 5 mg tablet 5 mg PO BID 0RF potassium chloride [Klor-Con M20] 20 mEq tablet,ER particles/crystals 40 meq PO BID 0RF lidocaine 5 % ointment 1 applic TOPICAL QID PRN (Reason: pain) 30 Days Qty: 240 1RF isosorbide mononitrate 30 mg tablet extended release 24 hr 30 mg PO DAILY 30 Days Qty: 30 5RF lidocaine-epinephrine 1 %-1:100,000 solution 2 ml SUBCUT ONCE Qty: 20 0RF metoprolol succinate 100 mg tablet extended release 24 hr 100 mg PO DAILY Qty: 90 3RF Stiolto Respimat 2.5-2.5 mcg/actuation mist 2 puff inhalation DAILY Qty: 4 6RF (DME) oxygen-air delivery systems Device See Rx Instructions .Route 0RF Rx Instructions: As directed (DME) oxygen-air delivery systems Device See Rx Instructions .Route 0RF Rx Instructions: As directed Relistor 150 mg tablet 450 mg PO QAM Qty: 90 2RF Senokot Extra Strength 17.2 mg tablet 34.4 mg PO BID Qty: 120 3RF hydrocodone-acetaminophen 10-325 mg tablet 1 tab PO .5xd PRN0RF pregabalin [Lyrica] 200 mg capsule 200 mg PO TID 30 Days Qty: 90 1RF Rx Instructions: / phentermine [Adipex-P] 37.5 mg tablet 37.5 mg PO DAILY Qty: 30 0RF Rx Instructions: must administer 30 minutes before or 1-2 hours after breakfast senna 8.6 mg Tablet 8.6 mg PO PRN 0RF calcium carbonate 650 mg calcium (1,625 mg) Tablet 650 mg PO BID 0RF cyanocobalamin (vitamin B-12) 1,000 mcg/mL Solution 1,000 mcg IM Q14D 0RF Rx Instructions: due on wednesday05/07/20 ibuprofen 200 mg Tablet 600 mg PO BEDTIME 0RF hydroxyzine pamoate 25 mg Capsule 25 mg PO BEDTIME 0RF magnesium oxide 400 mg magnesium Tablet 400 mg PO BEDTIME 0RF chlorthalidone 25 mg tablet See Rx Instructions .ROUTE .COMPLEX 0RF Rx Instructions: SEE PHARMACY COMMENTS Discharge Orders: Discharge ED (Routine); Ordered 05/24/21 Ordered By: Socorro Dixon Referrals: Abigail Grider MD [Primary Care Provider] - Discharge Diet: Advance as tolerated and Clear Liquid Discharge Activity: Increase activity as tolerated Patient Instructions: Constipation (ED), Acute Urinary Retention in Women (ED), Abdominal Pain (ED), Opioid Safety Activity Restrictions/Additional Instructions: Thank you for visiting the emergency department. You were seen and evaluated for abdominal pain associated with constipation and urinary retention. On CT you do have distended colon with evidence of stool burden as well as liquid stool behind this. We are pleased that you improved with treatment. I recommend discontinuing a bowel regimen for the next few days titrating so you have applesauce consistency stools multiple times per day. Laboratory studies did demonstrate elevated white blood cell count which is likely reactive however I recommend repeat labs in 1 week to ensure resolution. Additionally your potassium was mildly low and you did have evidence of mild dehydration. Please follow-up with your primary care provider. Please establish with a primary care provider if you do not have 1. Please follow-up with your urologist. Please return to the emergency department for worsening symptoms, inability to urinate or have bowel movements, lightheadedness, dizziness, chest pain, shortness of breath, or anything else that you are concerned about and feel needs emergency department evaluation. Incidental findings from radiology include: 4 cm simple appearing right ovarian cyst and 1.9 cm left ovarian cyst. Ultrasound follow-up in 6-12 months is recommended. Coding Level of Care Code ED Circuit Manager for Chg Fwd Exam Comprehensive
--- NOTE | 2021-05-23 19:26 | CTR_ITS ---
PROCEDURE INFORMATION: Exam: CT Abdomen And Pelvis With Contrast Exam date and time: 05/23/2021 8:55 PM Age: 65 years old Clinical indication: Abdominal pain; Generalized; Prior surgery; Surgery date: 6+ months; Surgery type: Bladder stim; Patient HX: C/O abd pain w constipation and inability to urinate; Additional info: Abdominal pain, constipation, inability to urinate TECHNIQUE: Imaging protocol: Computed tomography of the abdomen and pelvis with contrast. Radiation optimization: All CT scans at this facility use at least one of these dose optimization techniques: automated exposure control; mA and/or kV adjustment per patient size (includes targeted exams where dose is matched to clinical indication); or iterative reconstruction. Contrast material: OMNI 300; Contrast volume: 95 ml; Contrast route: INTRAVENOUS (IV); COMPARISON: 1. CT abdomen pelvis w con* [id number] 05/02/2020 6:[address] abdomen pelvis w con* [id number] 03/29/2020 9:59 AM RADIATION DOSE METRICS: Total DLP (mGy-cm): 1875.21 FINDINGS: Tubes, catheters and devices: Right sacral neurostimulator electrode in place with stimulator pack within the lower right flank subcutaneous fat. Liver: No acute abnormality. No mass. Gallbladder and bile ducts: Previous cholecystectomy. Pancreas: No acute abnormality. No ductal dilation. Spleen: No acute abnormality. Adrenal glands: No acute abnormality. No mass. Kidneys and ureters: Redemonstrated incidental 1.1 cm posterior left renal cyst. No hydronephrosis or hydroureter. Stomach and bowel: No significant small bowel distention. Distended proximal and mid colon with multiple air-fluid levels. Large amount of inspissated stool within distal colon and rectum. No evidence of diverticulitis. Appendix: Absent. Intraperitoneal space: No significant fluid collection. No free air. Vasculature: Atherosclerotic vascular calcification. No aortic aneurysm. Lymph nodes: No enlarged lymph nodes. Urinary bladder: Unremarkable as visualized. Reproductive: Previous hysterectomy. 4 cm simple appearing right ovarian cyst and 1.9 cm left ovarian cyst. Bones/joints: Multilevel spondylosis and degenerative bony changes. Soft tissues: No significant soft tissue abnormalities. CT/CT abdomen pelvis w con* [id number] IMPRESSION: 1. Constipation versus colonic ileus. 2. Previous appendectomy, cholecystectomy and hysterectomy. 3. 4 cm simple appearing right ovarian cyst and 1.9 cm left ovarian cyst. Ultrasound follow-up in 6-12 months is recommended. (Reference: Reagan) REFERENCES: Reagan et al. Management of Incidental Adnexal Findings on CT and MRI: A White Paper of the ACR Incidental Findings Committee, J Am Rodrigo Radiol. 2019;17(2):248-254.
[2021-05-23 19:59] VITALS: RESP 15
[2021-05-23 19:59] LABS: Basophils # 0.1 10^3/uL (0.0-0.1); Basophils % 0.4 %; Eosinophils % 0.1 %; Hematocrit 42.2 % (37.0-47.0); Hemoglobin 13.8 g/dL (11.5-15.3); Lymphocytes # 3.3 10^3/uL (0.8-4.8); Lymphocytes % 19.3 %; Mean Corpuscular HGB Conc 32.7 g/dL (30.0-36.0); Mean Corpuscular Hemoglobin 28.4 pg (28.0-34.0); Mean Corpuscular Volume 86.8 fl (81-99); Mean Platelet Volume 11.5 fL (7.4-10.4); Monocytes # 1.6 10^3/uL (0.2-0.9); Monocytes % 9.4 %; Neutrophils # 11.98 10^3/uL (1.8-7.7); Neutrophils % 70.4 %; Nucleated Red Blood Cells % 0 %; Platelet Count 299 10^3/cmm (130-400); Red Blood Count 4.86 10^6/uL (4.1-5.3); Red Cell Distribution Width 13.5 % (12.1-15.1)
[2021-05-23] MEDS: fentaNYL 50 mcg/mL INJ 2mL IVP ×2 (19:59→22:21)
[2021-05-23] MEDS: ondansetron 2 mg/ML SDV 2 mL 4 MG IVP (19:59)
[2021-05-23 20:18] LABS: Alanine Aminotransferase 16 U/L (0-33); Albumin Level 4.6 g/dL (3.5-5.2); Alkaline Phosphatase 102 IU/L (35-105); Anion Gap 15.4 (5-19); Aspartate Amino Transferase 22 U/L (0-32); Blood Urea Nitrogen 13 mg/dL (8-23); Calcium 10.1 mg/dL (8.5-10.5); Carbon Dioxide 27 mmol/L (22-29); Chloride 95 mmol/L (98-107); Globulin 2.9 g/dL (1.3-4.6); Glomerular Filtration Rate 99.7 mL/min (90-130); Glucose 147 mg/dL (65-115); Lipase 16 U/L (13-60); Osmolality Calculated 281 mOsm/kg (285-295); Potassium 3.4 mmol/L (3.5-5.1); Sodium 134 mmol/L (136-145); Total Bilirubin 0.5 mg/dL (0.15-1.2); Total Protein 7.5 g/dL (6.6-8.7)
[2021-05-23 20:42] LABS: Add Urine Microscopic? NO; Charge for UA Resulting for Rev
[2021-05-23 20:51] LABS: Bilirubin Urine Neg (Negative); Blood Urine Neg (Negative); Glucose Urine UA Norm (Normal); Ketones Urine Negative (Negative); Leukocyte Esterase Urine Negative (Negative); Nitrate Urine Negative (Negative); Protein Urine Neg (Negative); Specific Gravity, Urine 1.005 (1.005-1.030); Urine Appearance Clear (CLEAR); Urine Color Yellow (Yellow); Urobilinogen Urine Norm (Negative); pH Urine 7 (5-7)
[2021-05-23] MEDS: iohexol 300 mg/mL 100 mL Btl IV (20:55)
[2021-05-23 21:27] VITALS: BP 140/73; PULSE 71; RESP 16; O2SAT 96
[2021-05-23 22:21] VITALS: RESP 15
[2021-05-23] MEDS: Fleet Enema 133 mL Enema PR (23:08)
[2021-05-23] MEDS: lidocaine 2% Urojet 20 mL TOPICAL (23:08)
[2021-05-23] MEDS: lactated ringers 1,000 ML 999 ML IV (23:29)
[2021-05-24] MEDS: lactulose oral liq 20 gm/30 mL UDC 30 GM PO
[2021-05-24 00:07] VITALS: BP 153/90; PULSE 78; RESP 16; TEMP 36.6; O2SAT 95
[2021-05-24] MEDS: polyethylene glycol 3350 Pkt 17 gm PO (01:10)
[2021-05-24] MEDS: ondansetron 2 mg/ML SDV 2 mL 4 MG IVP (01:10)
[2021-05-24 01:51] VITALS: BP 132/70; PULSE 69; RESP 16; TEMP 36.6; O2SAT 95
[2021-05-24 01:54] VITALS: BP 132/70; PULSE 69; RESP 16; TEMP 36.6; O2SAT 95
== END 2021-05-24 01:50 | disposition home or self-care (01) ==
PROVIDERS: Emergency Medicine; Emergency Provider Emergency Medicine; PCP Family Medicine
DX: K59.00 Constipation, unspecified (principal); R33.9 Retention of urine, unspecified; Z87.891 Personal history of nicotine dependence; Z79.01 Long term (current) use of anticoagulants
CPT/HCPCS: 51798; 74018; 74177; 80053; 81003; 83605; 83690; 85025; 96361; 96374; 96375; 96376; 99284; J2405; J3010; Q9967

== ENCOUNTER 2021-06-25 08:58 | Outpatient (CLI) | payer OTHER, SELFPAY ==
--- NOTE | 2021-06-25 09:21 | MM_ITS ---
WS: [id number] BILATERAL SCREENING DIGITAL BREAST TOMOSYNTHESIS MAMMOGRAM WITH CAD HISTORY: SCREENING COMPARISON: 01/29/2020 Bilateral CC and MLO views with tomosynthesis and synthetic mammography submitted. Computer aided det ection analyzed. Breast composition: There are scattered areas of fibroglandular density. No suspicious masses, microc alcifications or architectural distortion. Numerous bilateral nodules throughout each breast. These n odules and asymmetries are stable. There are also additional calcifications. Partially calcified mass in the lateral LEFT breast is probably a degenerating fibroadenoma. MM/[place] [id number] IMPRESSION: BI-RADS: 2-Benign FOLLOW UP: 1 Year Follow-up
== END 2021-06-25 08:59 | disposition home or self-care (01) ==
LOC: RADSHAW 09:05
PROVIDERS: PCP Family Medicine; Visit Provider Nurse Practitioner
DX: Z12.31 Encounter for screening mammogram for malignant neoplasm of breast (principal)
CPT/HCPCS: 77063; 77067

== ENCOUNTER 2021-07-09 10:06 | Outpatient (CLI) | payer OTHER, SELFPAY ==
[2021-07-09 10:45] VITALS: BMI 42.0
--- NOTE | 2021-07-09 11:27 | ECG_ITS ---
[facility] Test Date: 2021-07-09 Pat Name: Joanie Stevens Department: Room: Gender: Female Campus Rep: Virginie Dixon : 1955 Requested By: Vicenta Will Order Number: [id number] Edith MD: Vicenta Will M.D. Interpretive Statements NAME OF STUDY: LEXISCAN SESTAMIBI STRESS TEST INDICATION: Chest Pain, PROCEDURE: At the baseline, the EKG revealed normal sinus rhythm with a diffuse nonspecific ST-T changes. The baseline blood pressure was 113/61 mm Hg with a heart rate of 62 beats/min. Lexiscan was infused over a period of 20 seconds. A total of 0.4 milligrams of Lexiscan was infused. The stress phase was continued for a total of 5 minutes. Heart rate at the end of the stress phase was 62 with a blood pressure 114/58. The EKG at the peak infusion revealed no significant changes. Sestamibi was injected 20 seconds after the Lexiscan infusion. Blood pressure at the end of the recovery phase was 122/54 with a heart rate of 64 per minute. CONCLUSION: 1. No significant EKG changes with the LexiScan infusion 2. No LexiScan induced chest pain or cardiac arrhythmia 3. Normal blood pressure and heart rate response 4. Sestamibi/sestamibi perfusion scan pending; see separate report. Electronically Signed On 07-11-2021 22:54:16 CDT by Vicenta Will M.D. [email or web address]
--- NOTE | 2021-07-09 11:27 | NMCV_ITS ---
NM alexandra perf SPECT r/s* [id number] Joanie Stevens Age: 65 Gender: F : 1955 Exam Date: 07/09/2021 11:29 Ordering Phys: Vicenta Will MD ([email or web address]) Technologist: ALMA Neal Exam Location: [facility] Indications: SHORTNESS OF BREATH STRESS TEST Please see separate stress test report in [facility] for full findings IMAGE PROTOCOL Rest/Stress 1 Lexiscan Day Radiopharmaceutical Dose (mCi) Administration Site Administered by Rest: Tc-99m 10.8 IV ALMA Linn Sestamibi Stress:Tc-99m 32.9 IV ALMA Linn Sestamibi Rest: 09-Jul-2021 60 Discovery 630 Stress: 09-Jul-2021 30 Discovery 630 0.4mg Lexiscan. Supine position only as patient was unable to lay prone. SPECT RESULTS Technical Quality: Excellent Raw Data Analysis: Normal Image Corrections: No attenuation or motion correction applied Summed Stress Score: 0 Summed Rest Score: 3 Summed Difference Score: 0 PERFUSION FINDINGS Patchy areas of slightly decreased tracer uptake in the apical anterior and apical lateral regions, with no significant reversibility. FUNCTIONAL RESULTS (calculated via Gated SPECT) Stress Image LV EF (%): 70 Stress EDV (mL):109 TID: 1.19 Stress ESV (mL):33 FUNCTIONAL FINDINGS: Segmental wall motion analysis revealing no gross wall motion abnormalities IMPRESSIONS 1. Myocardial perfusion imaging revealing patchy areas of persistent decreased tracer uptake in the apical regions, suggesting myocardial scarring versus separation artifacts 2 Segmental wall motion analysis revealing no gross wall motion normalities 3. LV ejection fraction estimated to be 70% 4. Normal LV volume. Clinical correlation is recommended Dr Vicenta Will MD FAC (Electronically Signed) Final Date: 09 Jul 2021 14:49 S
[2021-07-09 12:29] VITALS: BP 114/58; PULSE 61
[2021-07-09] MEDS: regadenoson 0.4 Mg/5 ml Syringe IVP (12:42)
== END 2021-07-09 10:07 | disposition home or self-care (01) ==
LOC: CDL 10:09
PROVIDERS: PCP Family Medicine; Visit Provider Internal Medicine Cardiovascular Disease
DX: R06.02 Shortness of breath (principal); R07.9 Chest pain, unspecified
CPT/HCPCS: 78452; 93017; A9500; J2785

== ENCOUNTER → 2021-07-28 15:56 | Outpatient (BNVA) | payer MEDICARE, SELFPAY | PROVIDERS: PCP Family Medicine; Visit Provider Family Medicine | DX: R39.9 Unspecified symptoms and signs involving the genitourinary system (principal) | CPT/HCPCS: 81003; 87077; 87086; 87184 ==

== ENCOUNTER → 2021-08-07 15:00 | Outpatient (BNVA) | payer MEDICARE, SELFPAY | PROVIDERS: PCP Family Medicine; Visit Provider Family Medicine | DX: N39.0 Urinary tract infection, site not specified (principal) | CPT/HCPCS: 81000 ==

== ENCOUNTER → 2021-09-16 14:41 | Outpatient (BNVA) | payer MEDICARE, SELFPAY | PROVIDERS: PCP Family Medicine; Visit Provider Nurse Practitioner Family | DX: L08.9 Local infection of the skin and subcutaneous tissue, unspecified (principal); L98.499 Non-pressure chronic ulcer of skin of other sites with unspecified severity; R73.9 Hyperglycemia, unspecified; M20.11 Hallux valgus (acquired), right foot | CPT/HCPCS: 73630; 80053; 83036; 85025; 87070; 87075; 87205 ==

== ENCOUNTER → 2021-10-08 13:19 | Outpatient (BNVA) | payer MEDICARE, SELFPAY | PROVIDERS: PCP Family Medicine; Visit Provider Thoracic Surgery (Cardiothoracic Vascular Surgery) | DX: I96 Gangrene, not elsewhere classified (principal); L97.512 Non-pressure chronic ulcer of other part of right foot with fat layer exposed | CPT/HCPCS: 97597; 99203; 99213; A6210 ==

== ENCOUNTER → 2021-10-15 13:08 | Outpatient (BNVA) | payer MEDICARE, SELFPAY | PROVIDERS: PCP Family Medicine; Visit Provider Thoracic Surgery (Cardiothoracic Vascular Surgery) | DX: I96 Gangrene, not elsewhere classified (principal); L97.512 Non-pressure chronic ulcer of other part of right foot with fat layer exposed | CPT/HCPCS: 97597 ==

== ENCOUNTER → 2021-10-22 15:07 | Outpatient (BNVA) | payer MEDICARE, SELFPAY | PROVIDERS: PCP Family Medicine; Visit Provider Thoracic Surgery (Cardiothoracic Vascular Surgery) | DX: I96 Gangrene, not elsewhere classified (principal); L97.512 Non-pressure chronic ulcer of other part of right foot with fat layer exposed | CPT/HCPCS: 97597 ==

== ENCOUNTER → 2021-10-29 15:11 | Outpatient (BNVA) | payer MEDICARE, SELFPAY | PROVIDERS: PCP Family Medicine; Visit Provider Nurse Practitioner Family | DX: I96 Gangrene, not elsewhere classified (principal); L97.512 Non-pressure chronic ulcer of other part of right foot with fat layer exposed; L97.509 Non-pressure chronic ulcer of other part of unspecified foot with unspecified severity; M19.071 Primary osteoarthritis, right ankle and foot | CPT/HCPCS: 11042; 73660 ==

== ENCOUNTER 2021-10-29 17:02 | Outpatient (CLI) | payer MEDICARE, SELFPAY ==
--- NOTE | 2021-10-29 17:15 | XR_ITS ---
WS: [id number] XR toe RT min 2V [id number] REASON FOR EXAM: L97.509 - Non-pressure chronic ulcer of other part of uns... FINDINGS: Changes of osteoarthropathy in the DIP and PIP joints of the toes. Soft tissue swelling of the distal third toe. There is loss of cortical definition in the tuft of the distal phalanx of the third toe. While this c ould be reactive change to adjacent soft tissue inflammation,, early osteomyelitis cannot be excluded . XR/XR toe RT min 2V [id number] IMPRESSION: Osteoarthritis. Bony abnormality of the distal phalanx of the third toe as above.
== END 2021-10-29 17:03 | disposition home or self-care (01) ==
LOC: RAD 17:05
PROVIDERS: PCP Family Medicine; Visit Provider Nurse Practitioner Family
DX: L97.509 Non-pressure chronic ulcer of other part of unspecified foot with unspecified severity (principal); M19.071 Primary osteoarthritis, right ankle and foot
CPT/HCPCS: 73660

== ENCOUNTER → 2021-10-30 10:55 | Outpatient (BNVA) | payer OTHER, SELFPAY | PROVIDERS: PCP Family Medicine; Visit Provider Internal Medicine Cardiovascular Disease | DX: I25.10 Atherosclerotic heart disease of native coronary artery without angina pectoris (principal); E66.01 Morbid (severe) obesity due to excess calories; Z68.36 Body mass index [BMI] 36.0-36.9, adult; G47.33 Obstructive sleep apnea (adult) (pediatric); E78.2 Mixed hyperlipidemia; I10 Essential (primary) hypertension; D68.51 Activated protein C resistance; Z79.01 Long term (current) use of anticoagulants; Z87.891 Personal history of nicotine dependence; J42 Unspecified chronic bronchitis; Z86.711 Personal history of pulmonary embolism | CPT/HCPCS: 99213; 99214 ==

== ENCOUNTER → 2021-11-05 15:20 | Outpatient (BNVA) | payer MEDICARE, SELFPAY | PROVIDERS: PCP Family Medicine; Visit Provider Thoracic Surgery (Cardiothoracic Vascular Surgery) | DX: I96 Gangrene, not elsewhere classified (principal); L97.512 Non-pressure chronic ulcer of other part of right foot with fat layer exposed | CPT/HCPCS: 97597; A6210 ==

== ENCOUNTER → 2021-11-12 15:10 | Outpatient (BNVA) | payer MEDICARE, SELFPAY | PROVIDERS: PCP Family Medicine; Visit Provider Thoracic Surgery (Cardiothoracic Vascular Surgery) | DX: I96 Gangrene, not elsewhere classified (principal); L97.512 Non-pressure chronic ulcer of other part of right foot with fat layer exposed | CPT/HCPCS: 97597 ==

== ENCOUNTER 2021-11-19 15:39 | Outpatient (CLI) | payer MEDICARE, SELFPAY ==
[2021-11-19 16:38] LABS: Basophils # 0.1 10^3/uL (0.0-0.1); Basophils % 0.8 %; Eosinophils # 0.2 10^3/uL (0.0-0.8); Eosinophils % 2.1 %; Hematocrit 32.6 % (37.0-47.0); Hemoglobin 10.5 g/dL (11.5-15.3); Lymphocytes % 43.5 %; Mean Corpuscular HGB Conc 32.2 g/dL (30.0-36.0); Mean Corpuscular Hemoglobin 29.1 pg (28.0-34.0); Mean Corpuscular Volume 90.3 fl (81-99); Mean Platelet Volume 10.4 fL (7.4-10.4); Monocytes % 11.3 %; Neutrophils # 3.84 10^3/uL (1.8-7.7); Neutrophils % 42.1 %; Nucleated Red Blood Cells % 0 %; Platelet Count 160 10^3/cmm (130-400); Red Blood Count 3.61 10^6/uL (4.1-5.3); White Blood Count 9.1 10^3/uL (4.0-10.0)
[2021-11-19 17:14] LABS: Anion Gap 11.7 (5-19); Blood Urea Nitrogen 15 mg/dL (8-23); Calcium 8.7 mg/dL (8.5-10.5); Carbon Dioxide 29 mmol/L (22-29); Chloride 95 mmol/L (98-107); Glomerular Filtration Rate 83.2 mL/min (90-130); Glucose 85 mg/dL (65-115); Osmolality Calculated 274 mOsm/kg (285-295); Potassium 3.7 mmol/L (3.5-5.1); Sodium 132 mmol/L (136-145)
== END 2021-11-19 15:40 | disposition home or self-care (01) ==
PROVIDERS: PCP Family Medicine; Visit Provider Thoracic Surgery (Cardiothoracic Vascular Surgery)
DX: M86.171 Other acute osteomyelitis, right ankle and foot (principal); L97.512 Non-pressure chronic ulcer of other part of right foot with fat layer exposed; I96 Gangrene, not elsewhere classified; L89.892 Pressure ulcer of other site, stage 2
CPT/HCPCS: 36415; 80048; 85025; 97597; A6210

== ENCOUNTER → 2021-11-26 14:24 | Outpatient (BNVA) | payer MEDICARE, SELFPAY | PROVIDERS: PCP Family Medicine; Visit Provider Thoracic Surgery (Cardiothoracic Vascular Surgery) | DX: I96 Gangrene, not elsewhere classified (principal); L89.892 Pressure ulcer of other site, stage 2; L97.512 Non-pressure chronic ulcer of other part of right foot with fat layer exposed; E11.40 Type 2 diabetes mellitus with diabetic neuropathy, unspecified | CPT/HCPCS: 97597 ==

== ENCOUNTER → 2021-12-03 13:08 | Outpatient (BNVA) | payer MEDICARE, SELFPAY | PROVIDERS: PCP Family Medicine; Visit Provider Thoracic Surgery (Cardiothoracic Vascular Surgery) | DX: I96 Gangrene, not elsewhere classified (principal); L89.892 Pressure ulcer of other site, stage 2 | CPT/HCPCS: 97597; A6210; A6252 ==

== ENCOUNTER → 2021-12-05 11:06 | Outpatient (BNVA) | payer MEDICARE, SELFPAY | PROVIDERS: PCP Family Medicine; Visit Provider Nurse Practitioner Family | DX: I96 Gangrene, not elsewhere classified (principal); L89.892 Pressure ulcer of other site, stage 2 | CPT/HCPCS: 99213 ==

== ENCOUNTER → 2021-12-10 13:06 | Outpatient (BNVA) | payer MEDICARE, SELFPAY | PROVIDERS: PCP Family Medicine; Visit Provider Thoracic Surgery (Cardiothoracic Vascular Surgery) | DX: I96 Gangrene, not elsewhere classified (principal); L89.892 Pressure ulcer of other site, stage 2 | CPT/HCPCS: 97597 ==

== ENCOUNTER → 2021-12-17 12:56 | Outpatient (BNVA) | payer MEDICARE, SELFPAY | PROVIDERS: PCP Family Medicine; Visit Provider Thoracic Surgery (Cardiothoracic Vascular Surgery) | DX: I96 Gangrene, not elsewhere classified (principal); L89.892 Pressure ulcer of other site, stage 2; L89.893 Pressure ulcer of other site, stage 3 | CPT/HCPCS: 97597 ==

== ENCOUNTER 2021-12-24 12:12 | Outpatient (CLI) | payer MEDICARE, SELFPAY ==
--- NOTE | 2021-12-24 12:15 | CT_ITS ---
WS: [id number] CT RIGHT FOOT WITH CONTRAST. HISTORY: L89.893 - Pressure ulcer of other site, stage 3 Technique: All CT scans at [facility] use at least one of these dose optimization techniques: automated exposure control; mA and/or kV adjustment per patient size (includes targeted exams where dose is matched to clinical indication); or iterative reconstruction. DLP: 214.95 mGy.cm COMPARISON: Radiographs 09/17/2019 and 10/29/2021 Enhancing soft tissue nodule along the plantar surface of the foot at the level of the first metatars ophalangeal joint. Soft tissue nodule with very mild rim enhancement measures 2.7 x 1.9 cm and extend s over a length of 1.8 cm. Soft tissue thickening extends to the sesamoid bones of the first metatars al. No definite osteomyelitis or bone destruction. There is additional very mild soft tissue enhancem ent and thickening surrounding the distal third toe. No bone destruction. There is a very minimal soft tissue thickening surrounding the fifth metatarsal head. No bone destruc tion. CT/CT foot RT w con [id number] IMPRESSION: 1. Largest soft tissue ulceration along the plantar surface at the first metat arsophalangeal joint without bone destruction. 2. Additional areas of soft tissue thickening without osteomyelitis involving the distal third toe and the fifth lateral metatarsal head.
[2021-12-24] MEDS: iohexol 350 mg/mL 100 mL Btl IV (12:42)
== END 2021-12-24 12:13 | disposition home or self-care (01) ==
PROVIDERS: PCP Family Medicine; Visit Provider Thoracic Surgery (Cardiothoracic Vascular Surgery)
DX: L89.893 Pressure ulcer of other site, stage 3 (principal); I96 Gangrene, not elsewhere classified; L97.512 Non-pressure chronic ulcer of other part of right foot with fat layer exposed
CPT/HCPCS: 73701; 97597; Q9967

== ENCOUNTER → 2021-12-31 14:57 | Outpatient (BNVA) | payer MEDICARE, SELFPAY | PROVIDERS: PCP Family Medicine; Visit Provider Nurse Practitioner Family | DX: I96 Gangrene, not elsewhere classified (principal); L89.892 Pressure ulcer of other site, stage 2; L97.512 Non-pressure chronic ulcer of other part of right foot with fat layer exposed | CPT/HCPCS: 11042 ==

== ENCOUNTER → 2022-01-14 13:16 | Outpatient (BNVA) | payer MEDICARE, SELFPAY | PROVIDERS: PCP Family Medicine; Visit Provider Nurse Practitioner Family | DX: I96 Gangrene, not elsewhere classified (principal); L97.512 Non-pressure chronic ulcer of other part of right foot with fat layer exposed | CPT/HCPCS: 11042 ==

== ENCOUNTER → 2022-01-21 13:09 | Outpatient (BNVA) | payer MEDICARE, SELFPAY | PROVIDERS: PCP Family Medicine; Visit Provider Thoracic Surgery (Cardiothoracic Vascular Surgery) | DX: Z09 Encounter for follow-up examination after completed treatment for conditions other than malignant neoplasm (principal) | CPT/HCPCS: 99212 ==

== ENCOUNTER → 2022-05-26 16:41 | Outpatient (BNVA) | payer OTHER, SELFPAY | PROVIDERS: PCP Family Medicine; Visit Provider Family Medicine | DX: U07.1 COVID-19 (principal); R05.8 Other specified cough | CPT/HCPCS: 87400; 87426 ==

== ENCOUNTER 2022-11-11 16:23 | Emergency (ER) | payer OTHER, SELFPAY ==
[2022-11-11 16:57] VITALS: BP 145/71; PULSE 66; RESP 18; TEMP 36.6; O2SAT 94; BMI 39.9
--- NOTE | 2022-11-11 18:20 | CTR_ITS ---
PROCEDURE INFORMATION: Exam: CT Head Without Contrast Exam date and time: 11/11/2022 6:46 PM Age: 66 years old Clinical indication: Injury or trauma; Fall; Blunt trauma (contusions or hematomas); Additional info: Head injury TECHNIQUE: Imaging protocol: Computed tomography of the head without contrast. Radiation optimization: All CT scans at this facility use at least one of these dose optimization techniques: automated exposure control; mA and/or kV adjustment per patient size (includes targeted exams where dose is matched to clinical indication); or iterative reconstruction. REPORTING DATA: Count of CT and Cardiac NM exams in prior 12 months: This patient has received [address] and 0 known cardiac nuclear medicine studies in the 12 months prior to the current study. COMPARISON: No relevant prior studies available. RADIATION DOSE METRICS: Total DLP (mGy-cm): 1398 FINDINGS: Brain: Mild atrophic change. No hemorrhage. Unremarkable white matter. No mass effect. No midline shift. No findings to indicate ischemic infarct. Cerebral ventricles: No ventriculomegaly. Paranasal sinuses: Bilateral ethmoid [id number]-right, and left frontal mucosal sinus disease. No air-fluid. Mastoid air cells: Visualized mastoid air cells are well aerated. Bones/joints: Unremarkable. No acute fracture. Soft tissues: Unremarkable. CT/CT head wo con* [id number] IMPRESSION: No acute intracranial abnormality.
--- NOTE | 2022-11-12 12:08 | W.ED.HA ---
HPI - Headache General: Chief Complaint: Headache Stated Complaint: Fell/hit head Time Seen by Provider: 11/11/22 18:46 History of Present Illness: This patient is a 66-year-old white female who presents to the ER with a headache. Patient is concerned because she struck her head on a recliner when she fell 1 week ago. She did not lose consciousness at that time. She has had some dizziness and headache since then. She is on a blood thinner secondary to pulmonary embolism. She has not had any nausea or vomiting. Review of Systems General: Reports: 10 or more systems reviewed and unremarkable except in HPI and below Neuro: Reports: headache(s) PFSH ED PFSH: Medical History Anticoagulation adequate with anticoagulant therapy Atherosclerotic heart disease cardiac catheterization on 09/18/2014 at the [facility] in [facility]. Patient had a high-grade lesion in the proximal to mid LAD and distal RCA. He had 3 stents in the LAD and one in the right coronary artery. Moderate disease in the intermedius artery which was left alone Chronic bilateral low back pain with bilateral sciatica Encounter for long-term opiate analgesic use Essential hypertension History of neuropathy Hx MRSA infection Hx of Clostridium difficile infection Hyperlipidemia Neck pain on right side greater than 3 months Obstructive sleep apnea of adult Right upper quadrant pain Fatty liver SOB (shortness of breath) Ventricular arrhythmia Surgical History History of bladder surgery Hx of appendectomy Hx of arthroscopic knee surgery right side Hx of cataract extraction bilat Hx of cholecystectomy 2018 Hx of hemorrhoidectomy Hx of hysterectomy 1985 Hx of resection of rib !980's After thrown from horse - rt 1st rib Hx of shoulder surgery Sherri-right side Hx of tonsillectomy Family History Brother Diabetes maternal grandmother Anesthesia complication Mother Hypertension father, brother Bleeding disorder Clotting disorder CAD (coronary artery disease) Mother Cancer Grandmother Stroke Diabetes Father Heart disease mother, brother Lung disease Father Lymphoma CAD (coronary artery disease) Cancer Denies family history of Dementia Chronic kidney disease (CKD) Suicide Social History Smoking and tobacco status: former smoker Quit status (tobacco): has quit using tobacco Year quit tobacco: 2005 Former quit date comment: Hx of 1PPD x 40 Years, started at age 13 Second hand smoke exposure: No Smoking risk assessment/counseling performed?: No Alcohol intake: current Alcohol intake frequency: holidays/special occasions only Desire information about alcohol rehabilitation?: No Counseling given: No Substance/Drug Use: never Desire information about substance/drug rehabilitation?: No Counseling given: No Lives independently: Yes Household members: spouse Marital status: service: Yes Current occupational status: retired Pets and animals: Yes Do you think of yourself as: Straight/Heterosexual Current gender identity: Female Physical Exam Const: COMMON NORMALS: no acute distress, patient oriented x3 and no limitations GENERAL APPEARANCE: cooperative and comfortable HENMT: COMMON NORMALS: normocephalic, atraumatic, Normal nasal mucous membranes and turbinates present, moist oral mucous membranes and oropharynx normal HEAD & SCALP: normal to inspection, normocephalic and atraumatic FACE & SINUS: normal facial exam NOSE: Normal nasal mucous membranes and turbinates present Eye: COMMON NORMALS: Equal, round and reactive pupils present, EOMs intact bilaterally and conjunctivae normal GENERAL EYE: appearance normal, both eyes and all related structures CONJUNCTIVA: Yes conjunctivae normal PUPIL: Yes Equal, round and reactive pupils present Neck/C-Spine: COMMON NORMALS: supple and no JVD Chest: COMMONS NORMALS: normal inspection of the chest Resp: COMMON NORMALS: normal respiratory effort and clear to auscultation bilaterally AUSCULTATION: clear to auscultation bilaterally Cardio: COMMON NORMALS: no JVD, regular rate, regular rhythm, No gallops present (Cardio), No murmurs present (Cardio) and No rub (Cardio) RATE: regular rate RHYTHM: regular rhythm GI: COMMON NORMALS: Normal to inspection, nondistended, normoactive bowel sounds present, Soft to palpation and non-tender AUSCULTATION: Yes normoactive bowel sounds PALPATION: Yes Soft to palpation : COMMON NORMALS: Yes no CVA tenderness BLADDER/KIDNEY EXAM: Yes no CVA tenderness Back/Pelvis: COMMON NORMALS: no CVA tenderness and thoracic and lumbar spine normal to inspection Extremity: COMMON NORMALS: normal to inspection Neuro: COMMON NORMALS: patient oriented x3 and CN's II-XII intact bilaterally Psych: COMMON NORMALS: mental status grossly normal, Normal thought process present and cooperative THOUGHT PROCESS: Normal thought process present Skin: COMMON NORMALS: no rashes or lesions noted, turgor normal and no jaundice GENERAL SKIN EXAM: no rashes or lesions noted and turgor normal Course Vital Signs: Vital signs: Vital Signs Temperature 97.8 F 11/11/22 16:57 Pulse Rate 66 11/11/22 16:57 Respiratory Rate 18 11/11/22 16:57 Blood Pressure 145/71 11/11/22 16:57 Pulse Oximetry 94 11/11/22 16:57 Oxygen Delivery Me thod Room Air 11/11/22 16:57 MDM - Headache Medical Decision Making Head CT was read by the radiologist as normal. Patient declined pain medication. She states she does have pain medication at home. Recommended she follow-up with her primary care physician as needed. She was discharged in stable condition. Lab Data Radiology Impressions Head CT 11/11/22 18:20 IMPRESSION: No acute intracranial abnormality. All radiology interpretation(s) finalized by discharge Discharge Plan Discharge Patient Disposition: Home Clinical Impression: Head injury Condition: Stable Prescriptions: No Action hydralazine 100 mg tablet 100 mg PO TID nitroglycerin [Nitrostat] 0.4 mg tablet, sublingual 0.4 mg SUBLINGUAL PRN cholecalciferol (vitamin D3) 1,000 unit capsule 4,000 unit PO DAILY@10 pantoprazole 40 mg tablet,delayed release (DR/EC) 40 mg PO QAM Myrbetriq 50 mg tablet extended release 24 hr 50 mg PO DAILY@10 trospium 60 mg capsule,extended release 24hr 60 mg PO QPM Zyrtec 10 mg capsule 10 mg PO DAILY PRN (Reason: Allergy Symptoms) fluticasone propionate 50 mcg/actuation spray,suspension 2 spray INTRANASAL DAILY Eliquis 5 mg tablet 5 mg PO BID potassium chloride [Klor-Con M20] 20 mEq tablet,ER particles/crystals 40 meq PO BID lidocaine-epinephrine 1 %-1:100,000 solution 2 ml SUBCUT ONCE Qty: 20 0RF metoprolol succinate 100 mg tablet extended release 24 hr 100 mg PO DAILY Qty: 90 3RF Stiolto Respimat 2.5-2.5 mcg/actuation mist 2 puff inhalation DAILY Qty: 4 6RF (DME) oxygen-air delivery systems Device See Rx Instructions .Route Rx Instructions: As directed (DME) oxygen-air delivery systems Device See Rx Instructions .Route Rx Instructions: As directed hydrocodone-acetaminophen 10-325 mg tablet 1 tab PO .5xd PRN pregabalin [Lyrica] 200 mg capsule 200 mg PO TID 30 Days Qty: 90 1RF Rx Instructions: / MediHoney (honey) 80 % gel 1 applic topical BID Qty: 44 0RF isosorbide mononitrate 60 mg tablet extended release 24 hr 60 mg PO DAILY Qty: 90 3RF azithromycin [Zithromax Z-Micheal] 250 mg tablet See Rx Instructions PO .COMPLEX Qty: 6 0RF Rx Instructions: take 500 mg today (day 1), then 250 mg for 4 days (days 2-5) PO methylprednisolone [Medrol (Micheal)] 4 mg tablets,dose pack See Rx Instructions PO PER PKG DIR Qty: 21 0RF Rx Instructions: PO PER PKG DIR promethazine-DM 6.25-15 mg/5 mL syrup 5 ml PO Q6H PRN (Reason: cough) Qty: 160 1RF albuterol sulfate 90 mcg/actuation HFA aerosol inhaler 2 inh INHALATION Q4H PRN (Reason: Shortness Of Breath) Qty: 8.5 0RF Senokot Extra Strength 17.2 mg tablet 34.4 mg PO BID Qty: 120 3RF calcium carbonate 650 mg calcium (1,625 mg) Tablet 650 mg PO BID cyanocobalamin (vitamin B-12) 1,000 mcg/mL Solution 1,000 mcg IM Q14D Rx Instructions: due on wednesday05/07/20 ibuprofen 200 mg Tablet 600 mg PO BEDTIME hydroxyzine pamoate 25 mg Capsule 25 mg PO BEDTIME magnesium oxide 400 mg magnesium Tablet 400 mg PO BEDTIME chlorthalidone 25 mg tablet See Rx Instructions .ROUTE .COMPLEX Rx Instructions: SEE PHARMACY COMMENTS Discharge Orders: Discharge ED (Routine); Ordered 11/11/22 Ordered By: Javier Padgett Referrals: Abigail Grider MD [Primary Care Provider] - Patient Instructions: Opioid Safety, Pain Management Coding Level of Care Code ED Clinical Systems Analyst for [facility] Chris
== END 2022-11-11 20:23 | disposition home or self-care (01) ==
PROVIDERS: Emergency Provider Emergency Medicine; PCP Family Medicine
DX: S09.90XA Unspecified injury of head, initial encounter (principal); Z79.01 Long term (current) use of anticoagulants; Z87.891 Personal history of nicotine dependence; I25.10 Atherosclerotic heart disease of native coronary artery without angina pectoris; I10 Essential (primary) hypertension; E78.5 Hyperlipidemia, unspecified; W19.XXXA Unspecified fall, initial encounter
CPT/HCPCS: 70450; 99284

== ENCOUNTER → 2022-12-24 13:01 | Outpatient (BNVA) | payer OTHER, SELFPAY | PROVIDERS: PCP Family Medicine; Visit Provider Internal Medicine Cardiovascular Disease | DX: R00.2 Palpitations (principal); I25.10 Atherosclerotic heart disease of native coronary artery without angina pectoris; I27.82 Chronic pulmonary embolism; D68.51 Activated protein C resistance; G47.33 Obstructive sleep apnea (adult) (pediatric); I10 Essential (primary) hypertension; E78.2 Mixed hyperlipidemia; Z87.891 Personal history of nicotine dependence; Z79.01 Long term (current) use of anticoagulants | CPT/HCPCS: 99214 ==

== ENCOUNTER 2023-03-03 16:14 | Emergency (ER) | payer OTHER, SELFPAY ==
[2023-03-03 16:24] VITALS: BP 130/56; PULSE 72; RESP 16; TEMP 36.9; O2SAT 95; BMI 38.4
--- NOTE | 2023-03-03 16:38 | W.ED.ABDPA2 ---
HPI - Abdominal Pain General: Chief Complaint: Abdominal Pain Stated Complaint: Blood in stool Time Seen by Provider: 03/03/23 16:33 Source: patient Mode of arrival: ambulatory History of Present Illness: 67-year-old female presents to the emergency room complaining of dark stools. Initially was well-formed black stools then she began having some looser stools that were very dark. She has not had any tarry stools. No bright red blood not vomiting any blood. She has a history of dyspepsia and reflux. She also has a history of DVT and has factor V Leiden deficiency she is on apixaban. She denies any chest or significant abdominal pain. She states she takes Pepto-Bismol and Tums daily for her stomach upset MD elicited complaint: abdominal pain Pertinent past history: none Onset (ago): day(s) (4) Exacerbating factors: nothing Relieving factors: nothing Associated Symptoms: Denies anorexia, belching, bloating, change in bowel habits, change in stool character, chills, coffee ground emesis, constipation, GI cramping, diarrhea, dyspepsia, dysuria, excessive flatus, fever(s), heartburn, hematochezia, hematuria, hematemesis, fecal incontinence, loose stools, melena, nausea, poor appetite, syncope and vomiting Review of Systems Const: Denies: fever(s) or chills Card: Denies: chest pain or syncope Resp: Denies: dyspnea GI: Denies: abdominal pain, nausea, vomiting, hematemesis, coffee ground emesis, heartburn, diarrhea, constipation, bloating, GI cramping, belching, excessive flatus, fecal incontinence, change in bowel habits, change in stool character, hematochezia or melena : Denies: dysuria, urinary frequency, urinary urgency or hematuria Musc: Denies: neck pain or back pain Skin/Breast: Denies: rash PFSH ED PFSH: Medical History Anticoagulation adequate with anticoagulant therapy Hx of Clostridium difficile infection Hx MRSA infection History of neuropathy SOB (shortness of breath) Encounter for long-term opiate analgesic use Ventricular arrhythmia Hyperlipidemia Essential hypertension Atherosclerotic heart disease cardiac catheterization on 09/18/2014 at the [facility] in [facility]. Patient had a high-grade lesion in the proximal to mid LAD and distal RCA. He had 3 stents in the LAD and one in the right coronary artery. Moderate disease in the intermedius artery which was left alone Obstructive sleep apnea of adult Neck pain on right side greater than 3 months Chronic bilateral low back pain with bilateral sciatica Right upper quadrant pain Fatty liver Surgical History History of bladder surgery Hx of hysterectomy 1985 Hx of appendectomy Hx of tonsillectomy Hx of cholecystectomy 2018 Hx of resection of rib !980's After thrown from horse - rt 1st rib Hx of arthroscopic knee surgery right side Hx of shoulder surgery Sherri-right side Hx of hemorrhoidectomy Hx of cataract extraction bilat Family History Brother Diabetes maternal grandmother Anesthesia complication Mother Hypertension father, brother Bleeding disorder Clotting disorder CAD (coronary artery disease) Mother Cancer Grandmother Stroke Diabetes Father Heart disease mother, brother Lung disease Father Lymphoma CAD (coronary artery disease) Cancer Denies family history of Dementia Chronic kidney disease (CKD) Suicide Social History Smoking and tobacco/nicotine status: former use of tobacco/nicotine Quit status (tobacco/nicotine): has quit using Year quit tobacco: 2005 Former quit date comment: Hx of 1PPD x 40 Years, started at age 13 Second hand smoke exposure: No Alcohol intake: current Alcohol intake frequency: holidays/special occasions only Substance/Drug Use: never Lives independently: Yes Household members: spouse Marital status: service: Yes Current occupational status: retired Pets and animals: Yes Do you think of yourself as: Straight/Heterosexual Current gender identity: Female Physical Exam Const: GENERAL APPEARANCE: cooperative and comfortable ORIENTATION/CONSCIOUSNESS: Yes awake, Yes oriented to person, Yes oriented to place and Yes oriented to time HENMT: COMMON NORMALS: normocephalic, atraumatic and hearing grossly normal bilaterally HEAD & SCALP: normocephalic and atraumatic Resp: COMMON NORMALS: normal respiratory effort, No retractions, No use of accessory muscles and clear to auscultation bilaterally AUSCULTATION: clear to auscultation bilaterally Cardio: COMMON NORMALS: regular rate, regular rhythm and No murmurs present (Cardio) RATE: regular rate RHYTHM: regular rhythm GI: COMMON NORMALS: Soft to palpation and No hepatosplenomegaly present AUSCULTATION: Yes normoactive bowel sounds PALPATION: Yes Soft to palpation, No Tenderness to palpation present (GI), No Guarding due to palpation present (GI) and Yes No hepatosplenomegaly present Extremity: COMMON NORMALS: normal to inspection, capillary refill normal, no clubbing, cyanosis or edema, no calf tenderness and no pedal edema Neuro: SENSORIUM/ORIENTATION: Yes oriented to person, Yes oriented to place and Yes oriented to time Skin: COMMON NORMALS: no rashes or lesions noted GENERAL SKIN EXAM: no rashes or lesions noted Course Vital Signs: Vital signs: Vital Signs Temperature 98.4 F 03/03/23 16:24 Pulse Rate 73 03/03/23 16:50 Respiratory Rate 18 03/03/23 16:50 Blood Pressure 133/69 03/03/23 16:50 Pulse Oximetry 93 03/03/23 16:50 Oxygen Delivery Me thod Room Air 03/03/23 16:50 MDM - Abdominal Pain Medical Decision Making Hemoglobin normal rectal exam Hemoccult negative BUN normal. No bright red blood per rectum. Suspect this is all due to her Pepto-Bismol. Discussed with the patient follow-up as needed continue current medications Medical Records I reviewed the patient's medical records. Lab Data I reviewed the patient's lab results. 03/03/23 16:38 03/03/23 16:38 Labs/Radiology: Laboratory Results WBC 7.68 10^3/uL (3.29-11.43) 03/03/23 16:38 RBC 4.37 10^6/uL (3.85-5.65) 03/03/23 16:38 Hgb 12.80 g/dL (11.27-16.99) 03/03/23 16:38 Hct 40.1 % (36-47) 03/03/23 16:38 MCV 91.8 fl (85-98) 03/03/23 16:38 MCH 29.3 pg (27-33) 03/03/23 16:38 MCHC 31.9 g/dL (30-55) 03/03/23 16:38 RDW 14.3 % (12.1-15.1) 03/03/23 16:38 Plt Count 289 10^3/cmm (157-399) 03/03/23 16:38 MPV 10.6 fL (7.4-10.4) H 03/03/23 16:38 Neut % (Auto) 47.7 % 03/03/23 16:38 Lymph % (Auto) 38.3 % 03/03/23 16:38 Storey % (Auto) 9.2 % 03/03/23 16:38 Eos % (Auto) 2.9 % 03/03/23 16:38 Baso % (Auto) 0.9 % 03/03/23 16:38 Neut # (Auto) 3.66 10^3/uL (1.8-7.7) 03/03/23 16:38 Lymph # (Auto) 2.9 10^3/uL (0.8-4.8) 03/03/23 16:38 Storey # (Auto) 0.7 10^3/uL (0.2-0.9) 03/03/23 16:38 Eos # (Auto) 0.2 10^3/uL (0.0-0.8) 03/03/23 16:38 Baso # (Auto) 0.1 10^3/uL (0.0-0.1) 03/03/23 16:38 Nucleated RBC % (auto) 0 % 03/03/23 16:38 Nucleated RBCs # 0.0 /100WBC 03/03/23 16:38 PT 16.50 SECONDS (12.1-14.9) H 03/03/23 16:38 INR 1.28 (0.8-1.2) H 03/03/23 16:38 Sodium 136 mmol/L (136-145) 03/03/23 16:38 Potassium 4.0 mmol/L (3.5-5.1) 03/03/23 16:38 Chloride 101 mmol/L (98-107) 03/03/23 16:38 Carbon Dioxide 23 mmol/L (22-29) 03/03/23 16:38 Anion Gap 16.0 (5-19) 03/03/23 16:38 BUN 11 mg/dL (8-23) 03/03/23 16:38 Creatinine 0.6 mg/dL (0.5-0.9) 03/03/23 16:38 GFR Calculation 99.1 mL/min (90-130) 03/03/23 16:38 Glucose 95 mg/dL (65-115) 03/03/23 16:38 Calculated Osmolality 281 mOsm/kg (285-295) L 03/03/23 16:38 Calcium 9.5 mg/dL (8.5-10.5) 03/03/23 16:38 Total Bilirubin 0.4 mg/dL (0.15-1.2) 03/03/23 16:38 AST 29 U/L (0-32) 03/03/23 16:38 ALT 18 U/L (0-33) 03/03/23 16:38 Alkaline Phosphatase 56 U/L (35-105) 03/03/23 16:38 Total Protein 7.2 g/dL (6.6-8.7) 03/03/23 16:38 Albumin 3.8 g/dL (3.5-5.2) 03/03/23 16:38 Globulin 3.4 g/dL (1.3-4.6) 03/03/23 16:38 All radiology interpretation(s) finalized by discharge Discharge Plan Discharge Patient Disposition: Home Clinical Impression: Abnormal stools Condition: Stable Prescriptions: No Action hydralazine 100 mg tablet 100 mg PO TID nitroglycerin [Nitrostat] 0.4 mg tablet, sublingual 0.4 mg SUBLINGUAL PRN cholecalciferol (vitamin D3) 1,000 unit capsule 4,000 unit PO DAILY@10 pantoprazole 40 mg tablet,delayed release (DR/EC) 40 mg PO QAM Myrbetriq 50 mg tablet extended release 24 hr 50 mg PO DAILY@10 trospium 60 mg capsule,extended release 24hr 60 mg PO QPM Zyrtec 10 mg capsule 10 mg PO DAILY PRN (Reason: Allergy Symptoms) fluticasone propionate 50 mcg/actuation spray,suspension 2 spray INTRANASAL DAILY Eliquis 5 mg tablet 5 mg PO BID potassium chloride [Klor-Con M20] 20 mEq tablet,ER particles/crystals 40 meq PO BID lidocaine-epinephrine 1 %-1:100,000 solution 2 ml SUBCUT ONCE Qty: 20 0RF metoprolol succinate 100 mg tablet extended release 24 hr 100 mg PO DAILY Qty: 90 3RF Stiolto Respimat 2.5-2.5 mcg/actuation mist 2 puff inhalation DAILY Qty: 4 6RF (DME) oxygen-air delivery systems Device See Rx Instructions .Route Rx Instructions: As directed (DME) oxygen-air delivery systems Device See Rx Instructions .Route Rx Instructions: As directed hydrocodone-acetaminophen 10-325 mg tablet 1 tab PO .5xd PRN pregabalin [Lyrica] 200 mg capsule 200 mg PO TID 30 Days Qty: 90 1RF Rx Instructions: / Juan (honey) 80 % gel 1 applic topical BID Qty: 44 0RF isosorbide mononitrate 60 mg tablet extended release 24 hr 60 mg PO DAILY Qty: 90 3RF levothyroxine 62.5 mcg capsule 62.5 mcg PO DAILY promethazine-DM 6.25-15 mg/5 mL syrup 5 ml PO Q6H PRN (Reason: cough) Qty: 160 1RF albuterol sulfate 90 mcg/actuation HFA aerosol inhaler 2 inh INHALATION Q4H PRN (Reason: Shortness Of Breath) Qty: 8.5 0RF Senokot Extra Strength 17.2 mg tablet 34.4 mg PO BID Qty: 120 3RF calcium carbonate 650 mg calcium (1,625 mg) Tablet 650 mg PO BID cyanocobalamin (vitamin B-12) 1,000 mcg/mL Solution 1,000 mcg IM Q14D Rx Instructions: due on wednesday05/07/20 ibuprofen 200 mg Tablet 600 mg PO BEDTIME hydroxyzine pamoate 25 mg Capsule 25 mg PO BEDTIME magnesium oxide 400 mg magnesium Tablet 400 mg PO BEDTIME chlorthalidone 25 mg tablet See Rx Instructions .ROUTE .COMPLEX Rx Instructions: SEE PHARMACY COMMENTS Discharge Orders: Discharge ED (Routine); Ordered 03/03/23 Ordered By: Guicho Penny Referrals: Jordyn Manuel FNP [Primary Care Provider] - Discharge Diet: Usual diet Discharge Activity: Resume usual activity Patient Instructions: Opioid Safety, Pain Management Activity Restrictions/Additional Instructions: Thank you for choosing [facility] for your healthcare needs today. Please realize this is an emergency room and that we are providing you with a medical screening exam and this may not be complete and all inclusive of all the testing and or work up that you may need to determine your ailment or severity of your illness. It is very important that you follow up as instructed or that you return to the Emergency Department should you have concerns or if your condition changes or worsens in any way. You are seen today with complaints of possible blood in the stool or black stools are likely caused by your Pepto-Bismol your hemoglobin is normal as well as other labs are usually used to evaluate for indications of gastrointestinal bleeding. Additionally the Hemoccult test on your stool was negative Coding Level of Care Code ED Media Sales Representative for Cintia Perez
[2023-03-03 16:50] VITALS: BP 133/69; PULSE 73; RESP 18; O2SAT 93
[2023-03-03 16:56] LABS: Basophils # 0.1 10^3/uL (0.0-0.1); Basophils % 0.9 %; Eosinophils # 0.2 10^3/uL (0.0-0.8); Eosinophils % 2.9 %; Hematocrit 40.1 % (36-47); Lymphocytes # 2.9 10^3/uL (0.8-4.8); Lymphocytes % 38.3 %; Mean Corpuscular HGB Conc 31.9 g/dL (30-55); Mean Corpuscular Hemoglobin 29.3 pg (27-33); Mean Corpuscular Volume 91.8 fl (85-98); Mean Platelet Volume 10.6 fL (7.4-10.4); Monocytes # 0.7 10^3/uL (0.2-0.9); Monocytes % 9.2 %; Neutrophils # 3.66 10^3/uL (1.8-7.7); Neutrophils % 47.7 %; Nucleated Red Blood Cells % 0 %; Platelet Count 289 10^3/cmm (157-399); Red Blood Count 4.37 10^6/uL (3.85-5.65); Red Cell Distribution Width 14.3 % (12.1-15.1); White Blood Count 7.68 10^3/uL (3.29-11.43)
[2023-03-03 17:13] LABS: INR 1.28 (0.8-1.2)
[2023-03-03 17:22] LABS: Alanine Aminotransferase 18 U/L (0-33); Albumin Level 3.8 g/dL (3.5-5.2); Alkaline Phosphatase 56 U/L (35-105); Aspartate Amino Transferase 29 U/L (0-32); Blood Urea Nitrogen 11 mg/dL (8-23); Calcium 9.5 mg/dL (8.5-10.5); Carbon Dioxide 23 mmol/L (22-29); Chloride 101 mmol/L (98-107); Globulin 3.4 g/dL (1.3-4.6); Glomerular Filtration Rate 99.1 mL/min (90-130); Glucose 95 mg/dL (65-115); Osmolality Calculated 281 mOsm/kg (285-295); Sodium 136 mmol/L (136-145); Total Bilirubin 0.4 mg/dL (0.15-1.2); Total Protein 7.2 g/dL (6.6-8.7)
== END 2023-03-03 18:13 | disposition home or self-care (01) ==
PROVIDERS: Emergency Medicine; Emergency Provider Family Medicine; PCP Nurse Practitioner
DX: R19.5 Other fecal abnormalities (principal); Z79.01 Long term (current) use of anticoagulants; Z87.891 Personal history of nicotine dependence; E78.5 Hyperlipidemia, unspecified; I10 Essential (primary) hypertension
CPT/HCPCS: 36415; 80053; 85025; 85610; 99283

== ENCOUNTER → 2023-04-19 15:20 | Outpatient (BNVA) | payer MEDICARE, SELFPAY | PROVIDERS: PCP Family Medicine; Visit Provider Family Medicine | DX: I10 Essential (primary) hypertension (principal); R53.83 Other fatigue; E03.9 Hypothyroidism, unspecified; I25.10 Atherosclerotic heart disease of native coronary artery without angina pectoris | CPT/HCPCS: 80053; 80061; 82607; 83540; 84443; 85025 ==

== ENCOUNTER 2023-04-30 14:53 | Outpatient (CLI) | payer MEDICARE, SELFPAY ==
--- NOTE | 2023-04-30 15:00 | MM_ITS ---
WS: [id number] BILATERAL 3D TOMOSYNTHESIS DIGITAL SCREENING MAMMOGRAPHY WITH CAD CLINICAL INFORMATION: Z12.39 - Encounter for other screening for malignant neop... HISTORY: Screening mammogram. No current complaints. COMPARISON: 2021 TECHNIQUE: Bilateral CC and MLO views. FINDINGS: Scattered fibroglandular densities bilaterally. No suspicious focal mass, asymmetry, calcifications, or architectural distortion. No evidence of malignancy. A few incidental benign calcifications. 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
== END 2023-04-30 14:54 | disposition home or self-care (01) ==
LOC: RAD 14:53
PROVIDERS: PCP Family Medicine; Visit Provider Family Medicine
DX: Z12.31 Encounter for screening mammogram for malignant neoplasm of breast (principal)
CPT/HCPCS: 77063; 77067